=== PATIENT | male | born 1945 | race Caucasian/White ===

== ENCOUNTER 2016-12-23 08:33 | Inpatient (IN) | payer MEDICARE ==
[2016-12-23] VITALS (19 sets, daily range): BP systolic 121–168; BP diastolic 43–77; PULSE 57–75; RESP 15–22; Ht 160 cm; Wt 64.3 kg
[~2016-12-23] VITALS: Ht 160 cm; Wt 64.3 kg
[~2016-12-23 08:33] MED LIST: AMLO5TAB4 PO; ASPI-664 PO; ATOR20TA38 PO; DOCU100T PO; GLIM1TAB2 PO; GLUC-137 PO; LOSARTAN; METF500T4 PO; METO-429 PO; MULT1TAB59 PO; OMEP20CA16 PO; SEVOFLURANE 15 MIN ONE; TAMS0.4C2 PO; TRAV4OP25 BOTH EYES
[2016-12-23] MEDS ORDERED: VALS320T11 PO (09:19)
[2016-12-23] MEDS ORDERED: RANI150T5 PO (09:20)
[2016-12-23] MEDS ORDERED: GLIM1TAB2 PO (09:20)
[2016-12-23] MEDS ORDERED: METO100T13 PO (09:21)
[2016-12-23] MEDS ORDERED: ASPI81TA3 PO (09:21)
[2016-12-23] MEDS ORDERED: CYAN100 PO (09:22)
[2016-12-23] MEDS ORDERED: ASCO500C7 PO (09:26)
[2016-12-23] MEDS ORDERED: OSCAL PO (09:26)
[2016-12-23] MEDS ORDERED: OMEG1CAP22 PO (09:26)
[2016-12-23] MEDS ORDERED: GARL600T PO (09:29)
[2016-12-23] MEDS ORDERED: CEFAZOLIN 1 GM INJ ONE ×3 (11:47→15:58)
[2016-12-23] MEDS ORDERED: PROPOFOL 100 ML ONE (11:47)
[2016-12-23] MEDS ORDERED: MIDAZOLAM 1 MG/ML 2 ML INJ ONE (11:47)
[2016-12-23] MEDS ORDERED: SUCCINYLCHOLINE CHLORIDE 100 MG/5 ML SYG IV ONE (11:47)
[2016-12-23] MEDS ORDERED: FENTAnyl 50 MCG/ML VIAL ONE (11:47)
[2016-12-23] MEDS ORDERED: ROCURONIUM 50 MG INJ ONE (11:47)
[2016-12-23] MEDS ORDERED: BUPIVACAINE 0.25%/EPI (SDV) 10 ML INJ ONE (12:12)
[2016-12-23] MEDS ORDERED: CA CHLORIDE 10% 10 ML SYRINGE ONE ×2 (12:12→13:02)
[2016-12-23] MEDS ORDERED: SURGIFOAM POWDER 1 GM KIT ONE ×2 (12:12→13:39)
[2016-12-23] MEDS ORDERED: POLYMYXIN/BACITRACIN 1L IRRIG ONE (12:12)
[2016-12-23] MEDS ORDERED: THROMBIN 5000 UNIT VIAL ONE ×2 (12:12→13:40)
[2016-12-23] MEDS ORDERED: GELATIN SIZE 100 SPONGE ONE (12:12)
--- NOTE | 2016-12-23 12:19 | HPN ---
Date/Time of Note Date/Time of Note DATE: 12/23/16 TIME: 12:19 Interval H&P Admission Note Pt. seen H&P reviewed: No system changes MIRANDA CHINO PA-C Dec 23, 2016 12:19
[2016-12-23] MEDS ORDERED: PHENYLephrine (100 MCG/ML) 5ML SYG ONE (12:38)
[2016-12-23] MEDS ORDERED: HEPARIN 1000 UNITS/ML 10 ML INJ ONE ×2 (12:41→13:03)
[2016-12-23] MEDS ORDERED: ONDANSETRON 4 MG INJ ONE (15:09)
[2016-12-23] MEDS ORDERED: EPHEDrine SULFATE 50 MG/5 ML SYG ONE (15:09)
[2016-12-23] MEDS ORDERED: METOCLOPRAMIDE 10 MG INJ ONE (15:09)
[2016-12-23] MEDS ORDERED: DEXAMETHASONE 4 MG/ML 1 ML INJ ONE ×2 (15:09)
[2016-12-23] MEDS ORDERED: ACETAMINOPHEN 1000MG/100ML IV 100 ML ONE (15:10)
[2016-12-23] MEDS ORDERED: FENTAnyl 50 MCG/ML VIAL IV PRN ×3 (15:30)
[2016-12-23] MEDS ORDERED: morphine (1 MG/ML) 10ML SYRINGE IV PRN ×3 (15:30)
[2016-12-23] MEDS ORDERED: EPHEDrine SULFATE 50 MG/5 ML SYG IV PRN (15:30)
[2016-12-23] MEDS ORDERED: ONDANSETRON 4 MG INJ IV PRN ×2 (15:30→16:30)
[2016-12-23] MEDS ORDERED: ALBUMIN HUMAN 5% 250 ML IV PRN (15:30)
[2016-12-23] MEDS ORDERED: MEPERIDINE 25 MG INJ IV PRN (15:30)
[2016-12-23] MEDS ORDERED: METOCLOPRAMIDE 10 MG INJ IV PRN (15:30)
[2016-12-23] MEDS ORDERED: HYDROmorphONE (0.2 MG/ML) 10ML SYG IV PRN ×3 (15:30)
[2016-12-23] MEDS ORDERED: DIPHENHYDRAMINE 50 MG INJ IV PRN ×2 (15:30→16:30)
[2016-12-23] MEDS ORDERED: LABETALOL HCL 20MG INJ IV PRN (15:30)
[2016-12-23] MEDS ORDERED: NEOSTIGMINE 3 MG/3 ML SYRINGE ONE (16:10)
[2016-12-23] MEDS ORDERED: GLYCOPYRROLATE 0.4 MG INJ ONE (16:10)
[2016-12-23] MEDS ORDERED: BISACODYL 10 MG SUPP PR PRN (16:30)
[2016-12-23] MEDS: CEFAZOLIN 1 GM/50 ML (PMX) 50 ML IVPB SCH (16:30)
[2016-12-23] MEDS ORDERED: NALOXONE (0.4 MG/ML) INJ IV PRN (16:30)
[2016-12-23] MEDS ORDERED: CEPASTAT LOZENGE MT PRN (16:30)
[2016-12-23] MEDS ORDERED: HYDROmorphONE 0.2 MG/ML PCA IV SCH (16:30)
[2016-12-23] MEDS ORDERED: ZOLPIDEM 5 MG TAB PO PRN (16:30)
[2016-12-23] MEDS ORDERED: ACETAMINOPHEN 325 MG TAB PO PRN (16:30)
[2016-12-23] MEDS ORDERED: CYCLOBENZAPRINE 10 MG TAB PO PRN (16:30)
[2016-12-23] MEDS ORDERED: HYDROCODONE/APAP (10/325) TAB PO PRN (16:30)
[2016-12-23] MEDS ORDERED: HYDROmorphONE 1 MG/ML SYG IV PRN (16:30)
--- NOTE | 2016-12-23 16:31 | OPPN ---
Date/Time of Note Date/Time of Note DATE: 12/23/16 TIME: 16:28 Operative Report Preoperative Diagnosis L5-S1 isthmic spondylolisthesis, stenosis, radiculopathy Postoperative Diagnosis L5-S1 isthmic spondylolisthesis, stenosis, radiculopathy Operation/Procedure Performed TLIF L5-S1 Provider: WYATT NIÑO MD catering administrative assistant: MIRANDA CHINO PA-C Anesthesia Type: general Estimated blood loss: 150 - 200 ml's Transfusion Required: no Specimens L5-S1 disc Grafts/Implants infill oblique lateral TLIF implant 9x28mm Complications: no MIRANDA CHINO PA-C Dec 23, 2016 16:31 MIRANDA CHINO PA-C Dec 23, 2016 16:31
[2016-12-23] MEDS: 1/2 NS + KCL 20 MEQ 1,000 ML IV SCH (18:42)
[2016-12-23] MEDS ORDERED: GLUCAGON 1 MG INJ IM PRN (19:00)
[2016-12-23] MEDS ORDERED: DEXTROSE 50% 50 ML SYRINGE IV PRN ×2 (19:00)
[2016-12-23] MEDS ORDERED: GLUCOSE GEL 15 GRAM TUBE BUCCAL PRN (19:00)
[2016-12-23] MEDS ORDERED: GLUCOSE GEL 15 GRAM TUBE PO PRN ×2 (19:00)
[2016-12-23 19:19] LABS: ABNORMAL IP MESSAGE 1; BASOPHILS % 0.2 % (0.0-2.0); EOSINOPHILS % 0.1 % (0.0-7.0); HEMATOCRIT 30.5 % (42.0-52.0); HEMOGLOBIN 10.2 g/dl (14.0-18.0); LYMPHOCYTES # 0.4 10^3/ul (0.8-2.9); LYMPHOCYTES % 3.9 % (15.0-51.0); MEAN CORPUSCULAR HEMOGLOBIN 32.1 pg (29.0-33.0); MEAN CORPUSCULAR HGB CONC 33.4 g/dl (32.0-37.0); MEAN CORPUSCULAR VOLUME 95.9 fl (82.0-101.0); MEAN PLATELET VOLUME 9.2 fl (7.4-10.4); MONOCYTE # 0.3 10^3/ul (0.3-0.9); NEUTROPHIL # 9.9 10^3/ul (1.6-7.5); NEUTROPHILS % 92.2 % (39.0-77.0); PLATELET COUNT 254 10^3/UL (140-415); POSITIVE DIFF @See below; RED BLOOD COUNT 3.18 10^6/ul (4.70-6.10); RED CELL DISTRIBUTION WIDTH 12.6 % (11.5-14.5); WHITE BLOOD COUNT 10.7 10^3/ul (4.8-10.8)
[2016-12-23 19:31] LABS: CALCIUM 8.3 mg/dl (8.4-10.2); CREATININE 0.67 mg/dl (0.61-1.24); POTASSIUM 3.9 mmol/L (3.5-5.1)
[2016-12-23] MEDS: METOPROLOL (XL) 100 MG TAB PO SCH (20:26)
[2016-12-23] MEDS: RANITIDINE 150 MG TAB PO SCH (20:27)
[2016-12-23] MEDS: TAMSULOSIN (SR) 0.4 MG CAP PO SCH (20:27)
[2016-12-23] MEDS: ATORVASTATIN 20 MG TAB PO SCH (20:27)
[2016-12-23] MEDS: DOCUSATE SODIUM 100 MG CAP PO SCH (20:28)
[2016-12-23] MEDS: INSULIN ASPART [NOVOLOG] 3 ML PEN SC SCH (20:35)
--- NOTE | 2016-12-23 22:22 | RADRPT ---
PROCEDURE: Intraoperative fluoroscopy CLINICAL INDICATION: Lumbar fusion. TECHNIQUE: 6 fluoroscopic images of the lumbar spine were obtained by the operating surgeon. Mckenzie chang fluoroscopic time: 51.2 seconds. COMPARISON: None. FINDINGS: The images discectomy and posterior fusion at L5-S1. IMPRESSION: 1. Status post discectomy and posterior fusion at L5-S1. RPTAT: HTAR .Gordon Medeiros MD, Date Time Electronically viewed and signed by .Gordon Medeiros MD, on 12/23/2016 22:22 .R/
[2016-12-24] VITALS (28 sets, daily range): BP systolic 95–161; BP diastolic 38–84; PULSE 56–67; RESP 12–23
[2016-12-24] MEDS: CEFAZOLIN 1 GM/50 ML (PMX) 50 ML IVPB SCH ×2 (00:03→08:37)
[2016-12-24] MEDS: ACCU-CHEK XX SCH (01:23)
[2016-12-24] MEDS ORDERED: ACCU-CHEK XX SCH (02:00)
[2016-12-24] MEDS: 1/2 NS + KCL 20 MEQ 1,000 ML IV SCH ×3 (02:32→22:26)
--- NOTE | 2016-12-24 03:23 | CONS ---
DATE OF ADMISSION: 12/23/2016 DATE OF CONSULTATION: 12/23/2016 Thank you, Dr. Vilalgran, for asking me to participate in medical management of this patient. REASON FOR CONSULTATION: To manage the patient's atrial flutter, hypertension, hyperlipidemia, benign prostatic hypertrophy, and gastroesophageal reflux disease. HISTORY OF PRESENT ILLNESS: This 71-year-old man is now in the ICU after undergoing a lumbar spine surgery by Dr. Villagran. The patient was having low back pain radiating down his right leg. He had failed medical therapy and underwent a surgery today by Dr. Villagran, which included an L5, S1 decompression and instrumented fusion. The patient preoperatively was diagnosed with an L5-S1 spondylolisthesis and stenosis with radiculopathy. The patient is awake and alert. He denies any chest pain or shortness of breath. There is a note on the chart from Dr. Hellen Vale, who is the patient's delivery assistant. Dr. Vale saw the patient preoperatively and cleared him for this surgery. PAST MEDICAL HISTORY: The patient has a history of atherosclerotic heart disease, hypertension, typical atrial flutter, chronic diastolic congestive heart failure, hyperlipidemia, type 2 diabetes mellitus. MEDICATION: Include 1. Metoprolol succinate extended release 100 mg a day. 2. Valsartan 320 mg a day. 3. Omeprazole 20 mg a day. 4. Vitamin C 500 mg a day. 5. Tamsulosin 0.4 mg once a day. 6. Atorvastatin 20 mg a day. 7. Glimepiride 0.5 mg once a day. 8. Metformin 1000 mg twice a day. 9. Ranitidine 150 mg a day. 10. Tramadol 50 mg q.4 hours p.r.n. pain. PAST SURGICAL HISTORY: Prior angiograms x2 and coronary artery bypass surgery. FAMILY HISTORY: Both parents are . He has a grandson who had leukemia. Brother of an acute [place] at age 57. He has 3 children who have diabetes. SOCIAL HISTORY: He does not smoke, does not drink alcohol. ALLERGIES: HE HAS NO KNOWN DRUG ALLERGIES. PHYSICAL EXAMINATION: GENERAL: At this time, reveals a well-developed man in no apparent distress. VITALS: Temperature 97.6, pulse 61, respirations 15, blood pressure 161/59, O2 sat 97 percent on 2 L nasal cannula. HEENT: Head is normocephalic. Eyes, extraocular muscles are intact. Nose and mouth are normal. NECK: Supple. No neck vein distention. LUNGS: Clear to auscultation. HEART: Regular rhythm. No murmurs, gallops, or rubs. ABDOMEN: Soft and nontender. No masses or organomegaly. EXTREMITIES: No peripheral edema. IMPRESSION: The patient is now postop a lumbar sacral spine surgery. He had a decompressive laminectomy. The patient is awake and alert. Denies any chest pain or shortness of breath. I will manage the patient's hypertension, arrhythmia, coronary artery disease, gastroesophageal reflux disease, diabetes mellitus, and benign prostatic hypertrophy. PLAN: 1. Resume routine medications. 2. Check labs in the morning. 3. Postop lumbar spine surgery protocol. 4. I will follow the patient along with you. Dictated By: Clifford Lee MD /rox/renny /Document#: [id number]
[2016-12-24] MEDS ORDERED: PANTOPRAZOLE 40 MG INJ IV SCH (06:00)
--- NOTE | 2016-12-24 06:27 | OPR ---
DATE OF OPERATION: 12/23/2016 PREOPERATIVE DIAGNOSIS: L5-S1 isthmic spondylolisthesis with stenosis and radiculopathy. POSTOPERATIVE DIAGNOSIS: L5-S1 isthmic spondylolisthesis with stenosis and radiculopathy. PROCEDURES: 1. Bilateral pedicle screw placement at L5 and S1. 2. Transforaminal lumbar interbody fusion at L5 and S1. 3. Placement of intervertebral biomechanical device at L5 and S1. 4. L5-S1 decompression with decompression of L5 and S1 nerve roots bilaterally for stenosis. 5. Posterior lateral fusion at L5 and S1. 6. Iliac crest bone marrow aspiration. 7. Use of allograft. 8. Use of autograft. 9. Use of C-arm fluoroscopy with interpretation without radiologist present. 10. Use of operative microscope. 11. Intraoperative neuro monitoring (3 hours). IMPLANTS: 1. Neuro structure palladian pedicle screws 6.5 x 40 mm bilaterally at L5 and S1. 2. Walton TLIF 9 mm cage. PRIMARY SURGEON: Dr. Jeff Villagran. HELMET COVERER: Gillian Olea PA-C. NEED FOR DIESEL ENGINE TESTER: agency sales management assistant was required for retraction of neurovascular elements. FINDINGS: Neuro monitor of the case revealed left L5 amplitude at 50 percent, right L5 amplitude 20 percent, left S1 amplitude 40 percent, right side normal. At the case nerve signal returned to normal. Patient had spondylolisthesis which was unstable at the L5-S1 level with stenosis. ESTIMATED BLOOD LOSS: 200 cc. DRAINS: One. SPECIMENS: L5-S1 disc. COMPLICATIONS OF PROCEDURE: None. ANESTHESIOLOGIST: Dr. Emerson. ANESTHESIA: General. INDICATION FOR PROCEDURE: This is a 71-year-old gentleman with an unstable isthmic spondylolisthesis at L5 and S1. He has history of cardiac disease and diabetes and once he was medically cleared, I recommend the above procedure. Since he failed nonoperative measures. Preoperatively, discussed risks, benefits, alternatives, he understood, wished to proceed. OPERATIVE PROCEDURE: The patient was identified in the preoperative holding area, given Ancef antibiotics and taken to the operating room, where he was successfully placed under general anesthesia. Neuro monitors were placed. Sequential compressive devices were applied. Dhaliwal catheter was introduced. Arterial line was placed. Neuro monitoring was utilized during the procedure for 3 hours to include SSEP, MEP, and EMG. This was performed by [facility]. Start time was 1:15 p.m. and closure time was 3:15 p.m. The patient was placed in the operating room table in prone position on Ibrahima frame. All bony prominences were padded. The back was then prepped and draped in the usual sterile fashion. Using the C-arm fluoroscope identified the incision sites. I anesthetized the skin with Marcaine and epinephrine. Incision was then made over the L5-S1 level. Incision was taken down to the dorsal fascia, which was incised with Bovie cautery. I then subperiosteally dissected the L5-S1 lamina out to the transverse process and sacral ala bilaterally. Next, I placed pedicle screws bilaterally at L5-S1. I used C-arm fluoroscope to confirm placement. I stimulated the screws and there was no evidence of cortical breach. Next I performed an iliac crest bone marrow aspiration from the right side. The blood was spun down using the [employer] device. I then brought the microscope in and performed a central decompressive laminectomy at the L5-S1 level decompressing the L5-S1 nerve roots bilaterally. This was done in order to alleviate the stenosis beyond what was required in order to perform interbody fusion. Once the decompression was done, I turned my attention to the right side. My assistant kitchen manager retracted the neuro elements medially. I made an annulotomy followed by radicle discectomy. I prepared the endplates. I then placed various trials and chose the appropriate graft height. I then placed the autograft from the lamina into the disc space. I then took the PEEK cage within which I placed allograft and I impacted the intervertebral biomechanical device into the L5-S1 level to complete the transforaminal lumbar interbody fusion at this level. I then irrigated the wound. Valsalva was performed. There was no leak of CSF. Hemostasis achieved with bipolar cautery and Surgifoam. The Ibrahima frame was then let down. I then placed the appropriate 35 mm rods bilaterally with set screws which I tightened per forming mill operator's specifications. I made sure that the daniel was of the appropriate length. I next prepared the posterior lateral gutters where I put autograft for posterior lateral fusion at L5-S1. At this point, microscope was taken off the field. All nerve signals returned to normal. I took the PPP injected the dura for hemostatic purposes. I then placed a subfascial drain. I closed the deep fascia with number 1 Vicryl stitch. I took final AP and lateral images and I was happy with the placement of the hardware in the lamina of the spine. I then closed the deep fascia with number 1 Strata Fix suture. I closed the subcutaneous tissue with 2-0 Vicryl stitch and 4-0 Monocryl closure was then performed. Dermabond and sterile dressing was then applied. The patient was then awakened from anesthesia and taken to recovery room in stable condition. Lap, sponge, instrument counts correct times 2. There were no apparent complications during the procedure. The patient will be admitted to the ICU given his cardiac history. He will have postop antibiotics, physical therapy and pain control, as well as neurovascular checks. Dictated By: Jeff Villagran MD /rox/arelis /Document#: [id number] RADHA
[2016-12-24 06:33] LABS: WHITE BLOOD COUNT 9.5 10^3/ul (4.8-10.8)
[2016-12-24 06:34] LABS: ABNORMAL IP MESSAGE 1; BASOPHILS % 0.1 % (0.0-2.0); HEMOGLOBIN 9.7 g/dl (14.0-18.0); LYMPHOCYTES # 0.6 10^3/ul (0.8-2.9); LYMPHOCYTES % 5.8 % (15.0-51.0); MEAN CORPUSCULAR HEMOGLOBIN 33.2 pg (29.0-33.0); MEAN CORPUSCULAR HGB CONC 34.6 g/dl (32.0-37.0); MEAN CORPUSCULAR VOLUME 95.9 fl (82.0-101.0); MEAN PLATELET VOLUME 9.8 fl (7.4-10.4); MONOCYTE # 0.7 10^3/ul (0.3-0.9); MONOCYTES % 7.7 % (0.0-11.0); NEUTROPHIL # 8.2 10^3/ul (1.6-7.5); NEUTROPHILS % 86.1 % (39.0-77.0); PLATELET COUNT 271 10^3/UL (140-415); POSITIVE DIFF @See below; RED BLOOD COUNT 2.92 10^6/ul (4.70-6.10); RED CELL DISTRIBUTION WIDTH 12.6 % (11.5-14.5)
--- NOTE | 2016-12-24 07:01 | PN ---
Date/Time of Note Date/Time of Note DATE: 12/24/16 TIME: 07:00 Assessment/Plan Lines/Catheters IV Catheter Type (from Nrsg): Peripheral IV Dhaliwal in Place (from Nrsg): Yes Assessment/Plan Assessment/Plan pod #1 s/p lumbar fusion doing well. PT, pain control abnormal EKG with 1st degree block. will defer to med consult Subjective 24 Hr Interval Summary mild back pain. no chest pain Exam/Review of Systems Vital Signs Vitals Vital Signs Date Time Temp Pulse Resp B/P Pulse Ox O2 Delivery O2 Flow Rate FiO2 12/24/16 06:42 18 12/24/16 06:00 59 129/58 96 Nasal Cannula 2.0 12/24/16 04:00 97.8 Intake and Output 12/23/16 12/23/16 12/24/16 15:00 23:00 07:00 Intake Total 2750 ml 1240 ml Output Total 1870 ml 300 ml Balance 880 ml 940 ml Exam Free Text/Dictation NVI. alert and oriented Results Result Diagram: 12/24/16 0515 12/23/16 1900 WYATT NIÑO MD Dec 24, 2016 07:01
[2016-12-24] MEDS ORDERED: NON-FORMULARY/PATIENT OWN MED (Omeprazole* 20 MG) PO SCH (07:05)
[2016-12-24 07:11] LABS: CALCIUM 8.2 mg/dl (8.4-10.2); CREATININE 0.71 mg/dl (0.61-1.24); MAGNESIUM 1.5 mg/dl (1.7-2.5); POTASSIUM 4.4 mmol/L (3.5-5.1)
--- NOTE | 2016-12-24 08:14 | CONS ---
Date/Time of Note Date/Time of Note DATE: 12/24/16 TIME: 08:10 Assessment/Plan Assessment/Plan Chief Complaint/Hosp Course 1. He is 1 day postop a lumbar sacral spine surgery. He is doing well. He is currently in the ICU being monitored. 2. History of atrial flutter. The patient is now in sinus rhythm. Patient will be seen by a fur vault attendant today. If okay with fur vault attendant patient can transfer to the orthopedic floor. 3. Hypertension controlled 4. Type 2 diabetes mellitus. Will restart diabetic medication. 5. Hypomagnesemia. We will replace magnesium. 6. Coronary artery disease the patient is not having any chest pain or shortness of breath Problems: Consultation Date/Type/Reason Admit Date/Time Dec 23, 2016 at 08:33 Initial Consult Date 24 HR Interval Summary Free Text/Dictation The patient is being seen in the intensive care unit. He is 1 day postop a lumbar sacral spine surgery. He is awake and alert. He has no complaints. Constitutional: no complaints Exam/Review of Systems Vital Signs Vitals Vital Signs Date Time Temp Pulse Resp B/P Pulse Ox O2 Delivery O2 Flow Rate FiO2 12/24/16 06:42 18 12/24/16 06:00 59 129/58 96 Nasal Cannula 2.0 12/24/16 04:00 97.8 Intake and Output 12/23/16 12/23/16 12/24/16 15:00 23:00 07:00 Intake Total 2750 ml 1240 ml Output Total 1870 ml 300 ml Balance 880 ml 940 ml Exam Constitutional: alert, oriented, well developed Respiratory: clear to auscultation, normal air movement Cardiovascular: regular rate and rhythm Gastrointestinal: soft Musculoskeletal: nl extremities to inspection Results Result Diagram: 12/24/16 0515 12/24/16 0515 Results 24 hrs Laboratory Tests Test 12/23/16 09:26 12/23/16 18:56 12/23/16 19:00 12/23/16 20:33 Bedside Glucose 140 167 176 White Blood Count 10.7 Red Blood Count 3.18 L Hemoglobin 10.2 L Hematocrit 30.5 L Mean Corpuscular Volume 95.9 Mean Corpuscular Hemoglobin 32.1 Mean Corpuscular Hemoglobin Concent 33.4 Red Cell Distribution Width 12.6 Platelet Count 254 Mean Platelet Volume 9.2 Neutrophils % 92.2 H Lymphocytes % 3.9 L Monocytes % 3.0 Eosinophils % 0.1 Basophils % 0.2 Nucleated Red Blood Cells % 0.0 Neutrophils # 9.9 H Lymphocytes # 0.4 L Monocytes # 0.3 Eosinophils # 0.0 Basophils # 0.0 Nucleated Red Blood Cells # 0.0 Sodium Level 134 L Potassium Level 3.9 Chloride Level 98 Carbon Dioxide Level 25 Anion Gap 15 Blood Urea Nitrogen 13 Creatinine 0.67 Glucose Level 174 Calcium Level 8.3 L Troponin I < 0.012 Test 12/24/16 05:15 White Blood Count 9.5 Red Blood Count 2.92 L Hemoglobin 9.7 L Hematocrit 28.0 L Mean Corpuscular Volume 95.9 Mean Corpuscular Hemoglobin 33.2 H Mean Corpuscular Hemoglobin Concent 34.6 Red Cell Distribution Width 12.6 Platelet Count 271 Mean Platelet Volume 9.8 Neutrophils % 86.1 H Lymphocytes % 5.8 L Monocytes % 7.7 Eosinophils % 0.0 Basophils % 0.1 Nucleated Red Blood Cells % 0.0 Neutrophils # 8.2 H Lymphocytes # 0.6 L Monocytes # 0.7 Eosinophils # 0.0 Basophils # 0.0 Nucleated Red Blood Cells # 0.0 Sodium Level 135 Potassium Level 4.4 Chloride Level 97 Carbon Dioxide Level 25 Anion Gap 17 H Blood Urea Nitrogen 12 Creatinine 0.71 Glucose Level 245 H Calcium Level 8.2 L Magnesium Level 1.5 L Medications Medications Current Medications Potassium Chloride/Sodium Chloride (1/2 NS + KCl 20 Meq) 1,000 ml @ 100 mls/hr Q10H IV Last administered on 12/24/16t 02:32; Admin Dose 100 MLS/HR; Start at 16:26 Acetaminophen/ Hydrocodone Bitart ([place] (10/325)) 1 tab Q4H PRN PO PAIN LEVEL 1-5; Start 12/23/16 at 16:30 Acetaminophen/ Hydrocodone Bitart ([place] (10/325)) 2 tab Q4H PRN PO PAIN LEVEL 6-10; Start 12/23/16 at 16:30 Hydromorphone HCl 0.2 mg 0.2 mg Q1H PRN IV BREAKTHROUGH PAIN; Start 12/23/16 at 16:30 Cefazolin Sodium (Ancef 1 Gm/50 ml (Pmx)) 50 ml @ 100 mls/hr Q8H IVPB Last administered on 12/24/16 00:03; Admin Dose 100 MLS/HR; Start 12/23/16 at 16:30; Stop 12/24/16 at 08:59 Ondansetron HCl (Zofran Inj) 4 mg Q6H PRN IV NAUSEA AND/OR VOMITING; Start 12/23 at 16:30 Bisacodyl (Dulcolax Supp) 10 mg DAILY PRN [place] CONSTIPATION; Start 12/23/16 at 16: 30 Docusate Sodium (Colace) 100 mg BID PO Last administered on 12/23/16 20:28; Admin Dose 100 MG; Start 12/23/16 at 21:00 Pantoprazole (Protonix Iv) 40 mg DAILY@06 IV Last administered on 12/24/16 05: 41; Admin Dose 40 MG; Start 12/24/16 at 06:00 Al Hydrox/Mg Hydrox/Simethicone (Mag-Al Plus) 15 ml Q6H PRN PO CONSTIPATION/ DYSPEPSIA; Start 12/23/16 at 16:30 Acetaminophen (Tylenol Tab) 650 mg Q4H PRN PO COLLAZO OR TEMP GREATER THAN 101.3F; Start 12/23/16 at 16:30 Cyclobenzaprine HCl (Flexeril) 10 mg TID PRN PO MUSCLE SPASMS; Start 12/23/16 at 16:30 Phenol (Cepastat Lozenge) 1 lozenge PRN PRN MT SORE THROAT; Start 12/23/16 at 16 :30 Diphenhydramine HCl (Benadryl) 25 mg Q6H PRN IV ITCHING; Start 12/23/16 at 16:30 Naloxone HCl (Narcan) 0.2 mg Q2M PRN IV RR 8 BREATHS/MIN OR LESS; Start at 16:30 Hydromorphone HCl (Dilaudid STRIPPER SHOVEL OPERATOR) STRIPPER SHOVEL OPERATOR to be started in PACU Q4PCA IV Last administered on 12/23/16 17:05; Admin Dose 6 MG; Start 12/23/16 at 16:30 Miscellaneous Information 1. Hold STRIPPER SHOVEL OPERATOR at 1,000... STRIPPER SHOVEL OPERATOR IV ; Start 12/23/16 at 16: 30 Ascorbic Acid (Vitamin C) 500 mg DAILY PO ; Start 12/24/16 at 09:00 Atorvastatin Calcium (Lipitor) 20 mg QHS PO Last administered on 12/23/16 20:27 ; Admin Dose 20 MG; Start 12/23/16 at 21:00 Metoprolol Succinate (Toprol Xl) 100 mg DAILY PO Last administered on 12/23/16 20:26; Admin Dose 100 MG; Start 12/23/16 at 19:00 Ranitidine HCl (Zantac) 150 mg HS PO Last administered on 12/23/16 20:27; Admin Dose 150 MG; Start 12/23/16 at 21:00 Tamsulosin HCl (Flomax) 0.4 mg QHS PO Last administered on 12/23/16 20:27; Admin Dose 0.4 MG; Start 12/23/16 at 21:00 Valsartan (Diovan) 320 mg DAILY PO ; Start 12/24/16 at 09:00 Diagnostic Test (Pha) (Accu-Chek) 1 ea 02 XX ; Start 12/24/16 at 02:00 Miscellaneous Information 1 ea NOTE XX ; Start 12/23/16 at 19:00 Glucose (Glutose) 15 gm Q15M PRN PO DECREASED GLUCOSE; Start 12/23/16 at 19:00 Glucose (Glutose) 22.5 gm Q15M PRN PO DECREASED GLUCOSE; Start 12/23/16 at 19:00 Dextrose (D50w Syringe) 25 ml Q15M PRN IV DECREASED GLUCOSE; Start 12/23/16 at 19:00 Dextrose (D50w Syringe) 50 ml Q15M PRN IV DECREASED GLUCOSE; Start 12/23/16 at 19:00 Glucagon (Glucagen) 1 mg Q15M PRN IM DECREASED GLUCOSE; Start 12/23/16 at 19:00 Glucose (Glutose) 15 gm Q15M PRN BUCCAL DECREASED GLUCOSE; Start 12/23/16 at 19: 00 TRISHA MATAMOROS MD Dec 24, 2016 08:14
[2016-12-24] MEDS ORDERED: MAGNESIUM SULFATE 2 GM/50 ML 50 ML IVPB ONE (08:30)
[2016-12-24] MEDS: DOCUSATE SODIUM 100 MG CAP PO SCH ×2 (08:38→20:33)
[2016-12-24] MEDS: METOPROLOL (XL) 100 MG TAB PO SCH (08:38)
[2016-12-24] MEDS: ASCORBIC ACID 500 MG TAB PO SCH (08:38)
[2016-12-24] MEDS: VALSARTAN 160 MG TAB PO SCH (08:39)
[2016-12-24] MEDS: INSULIN ASPART [NOVOLOG] 3 ML PEN SC SCH ×4 (08:40→20:38)
--- NOTE | 2016-12-24 09:48 | OPPN ---
Date/Time of Note Date/Time of Note DATE: 12/24/16 TIME: 09:47 Post-Anesthesia Notes Post-Anesthesia Note Last documented vital signs Vital Signs Date Time Temp Pulse Resp B/P Pulse Ox O2 Delivery O2 Flow Rate FiO2 12/24/16 06:42 18 12/24/16 06:00 59 129/58 96 Nasal Cannula 2.0 12/24/16 04:00 97.8 Activity: WNL Respiratory function: WNL Cardiovascular function: WNL Mental status: Baseline Pain reasonably controlled: Yes Hydration appropriate: Yes Nausea/Vomiting absent: Yes Comments Troponin was checked not elevated, patient is stable. EVELYN COOK MD Dec 24, 2016 09:48
--- NOTE | 2016-12-24 16:40 | CONS ---
Date/Time of Note Date/Time of Note DATE: 12/24/16 TIME: 16:39 Assessment/Plan Assessment/Plan Additional Assessment/Plan Postoperative paroxysmal atrial flutter, currently sinus rhythm Status post spine surgery CAD with history of CABG Hypertension -In discussion with nursing staff, patient with postoperative atrial flutter. On review of telemetry in the ICU, patient remains in sinus rhythm as well as on ECG this morning. We will continue beta-blockers heart rate and blood pressure permits. Restart anticoagulation when okay by our surgery colleagues. Maintain potassium above 4.0 and magnesium above 2.0 to decrease propensity for arrhythmias. Okay to transfer out of the ICU from a cardiovascular standpoint. Consultation Date/Type/Reason Admit Date/Time Dec 23, 2016 at 08:33 Type of Consultation: cv Reason for Consultation Arrhythmia Hx of Present Illness This is a 71-year-old male with past medical history of CAD status post CABG, paroxysmal atrial fibrillation, hypertension who presented for elective spine surgery. As per nursing staff, patient with postoperative atrial flutter. On telemetry in the ICU, patient remains in sinus rhythm. Patient denies any palpitations, dizziness, chest pain, shortness of breath. He does have a known history of paroxysmal atrial flutter. 12 point review of system was performed with all pertinent positives and negatives mentioned above and all else is negative Constitutional: no complaints Past Medical History Atrial flutter Medical History: coronary artery disease, hypertension Past Surgical History Past Surgical Hx: coronary bypass surgery Family History Significant Family History: no pertinent family hx Social History Smoking Status: Former smoker Exam/Review of Systems Vital Signs Vitals Vital Signs Date Time Temp Pulse Resp B/P Pulse Ox O2 Delivery O2 Flow Rate FiO2 12/24/16 13:30 61 12 96 12/24/16 13:00 126/84 12/24/16 12:00 98.2 12/24/16 06:00 Nasal Cannula 2.0 Intake and Output 12/23/16 12/23/16 12/24/16 15:00 23:00 07:00 Intake Total 2750 ml 1340 ml Output Total 1870 ml 575 ml Balance 880 ml 765 ml Exam No apparent distress, family at bedside Constitutional: alert, oriented Head: normocephalic Respiratory: other (Coarse breath sounds bilaterally, no wheezing) Cardiovascular: other (S1-S2 heard), regular rate and rhythm Gastrointestinal: bowel sounds, non-tender, other (No guarding), soft Extremities: other (No edema) Results Result Diagram: 12/24/16 0515 12/24/16 0515 Results 24 hrs Laboratory Tests Test 12/23/16 18:56 12/23/16 19:00 12/23/16 20:33 12/24/16 05:15 Bedside Glucose 167 176 White Blood Count 10.7 9.5 Red Blood Count 3.18 L 2.92 L Hemoglobin 10.2 L 9.7 L Hematocrit 30.5 L 28.0 L Mean Corpuscular Volume 95.9 95.9 Mean Corpuscular Hemoglobin 32.1 33.2 H Mean Corpuscular Hemoglobin Concent 33.4 34.6 Red Cell Distribution Width 12.6 12.6 Platelet Count 254 271 Mean Platelet Volume 9.2 9.8 Neutrophils % 92.2 H 86.1 H Lymphocytes % 3.9 L 5.8 L Monocytes % 3.0 7.7 Eosinophils % 0.1 0.0 Basophils % 0.2 0.1 Nucleated Red Blood Cells % 0.0 0.0 Neutrophils # 9.9 H 8.2 H Lymphocytes # 0.4 L 0.6 L Monocytes # 0.3 0.7 Eosinophils # 0.0 0.0 Basophils # 0.0 0.0 Nucleated Red Blood Cells # 0.0 0.0 Sodium Level 134 L 135 Potassium Level 3.9 4.4 Chloride Level 98 97 Carbon Dioxide Level 25 25 Anion Gap 15 17 H Blood Urea Nitrogen 13 12 Creatinine 0.67 0.71 Glucose Level 174 245 H Calcium Level 8.3 L 8.2 L Troponin I < 0.012 Magnesium Level 1.5 L Test 12/24/16 08:15 12/24/16 12:10 Bedside Glucose 216 154 Medications Medications Current Medications Potassium Chloride/Sodium Chloride (1/2 NS + KCl 20 Meq) 1,000 ml @ 100 mls/hr Q10H IV Last administered on 12/24/16t 15:18; Admin Dose 100 MLS/HR; Start at 16:26 Acetaminophen/ Hydrocodone Bitart ([place] (10/325)) 1 tab Q4H PRN PO PAIN LEVEL 1-5; Start 12/23/16 at 16:30 Acetaminophen/ Hydrocodone Bitart ([place] (10/325)) 2 tab Q4H PRN PO PAIN LEVEL 6-10; Start 12/23/16 at 16:30 Hydromorphone HCl (Dilaudid) 0.2 mg Q1H PRN IV BREAKTHROUGH PAIN; Start at 16:30 Ondansetron HCl (Zofran Inj) 4 mg Q6H PRN IV NAUSEA AND/OR VOMITING; Start 12/23 at 16:30 Bisacodyl (Dulcolax Supp) 10 mg DAILY PRN [place] CONSTIPATION; Start 12/23/16 at 16: 30 Docusate Sodium (Colace) 100 mg BID PO Last administered on 12/24/16 08:38; Admin Dose 100 MG; Start 12/23/16 at 21:00 Al Hydrox/Mg Hydrox/Simethicone (Mag-Al Plus) 15 ml Q6H PRN PO CONSTIPATION/ DYSPEPSIA; Start 12/23/16 at 16:30 Acetaminophen (Tylenol Tab) 650 mg Q4H PRN PO COLLAZO OR TEMP GREATER THAN 101.3F; Start 12/23/16 at 16:30 Cyclobenzaprine HCl (Flexeril) 10 mg TID PRN PO MUSCLE SPASMS; Start 12/23/16 at 16:30 Phenol (Cepastat Lozenge) 1 lozenge PRN PRN [place] SORE THROAT; Start 12/23/16 at 16 :30 Diphenhydramine HCl (Benadryl) 25 mg Q6H PRN IV ITCHING; Start 12/23/16 at 16:30 Naloxone HCl (Narcan) 0.2 mg Q2M PRN IV RR 8 BREATHS/MIN OR LESS; Start at 16:30 Hydromorphone HCl (Dilaudid CURB ATTENDANT) CURB ATTENDANT to be started in PACU Q4PCA IV Last administered on 12/23/16 17:05; Admin Dose 6 MG; Start 12/23/16 at 16:30 Miscellaneous Information 1. Hold CURB ATTENDANT at 1,000... CURB ATTENDANT IV ; Start 12/23/16 at 16: 30 Ascorbic Acid (Vitamin C) 500 mg DAILY PO Last administered on 12/24/16 08:38; Admin Dose 500 MG; Start 12/24/16 at 09:00 Atorvastatin Calcium (Lipitor) 20 mg QHS PO Last administered on 12/23/16 20:27 ; Admin Dose 20 MG; Start 12/23/16 at 21:00 Metoprolol Succinate (Toprol Xl) 100 mg DAILY PO Last administered on 12/24/16 08:38; Admin Dose 100 MG; Start 12/23/16 at 19:00 Ranitidine HCl (Zantac) 150 mg HS PO Last administered on 12/23/16 20:27; Admin Dose 150 MG; Start 12/23/16 at 21:00 Tamsulosin HCl (Flomax) 0.4 mg QHS PO Last administered on 12/23/16 20:27; Admin Dose 0.4 MG; Start 12/23/16 at 21:00 Valsartan (Diovan) 320 mg DAILY PO Last administered on 12/24/16 08:39; Admin Dose 320 MG; Start 12/24/16 at 09:00 Diagnostic Test (Pha) (Accu-Chek) 1 ea 02 XX ; Start 12/24/16 at 02:00 Miscellaneous Information 1 ea NOTE XX ; Start 12/23/16 at 19:00 Glucose (Glutose) 15 gm Q15M PRN PO DECREASED GLUCOSE; Start 12/23/16 at 19:00 Glucose (Glutose) 22.5 gm Q15M PRN PO DECREASED GLUCOSE; Start 12/23/16 at 19:00 Dextrose (D50w Syringe) 25 ml Q15M PRN IV DECREASED GLUCOSE; Start 12/23/16 at 19:00 Dextrose (D50w Syringe) 50 ml Q15M PRN IV DECREASED GLUCOSE; Start 12/23/16 at 19:00 Glucagon (Glucagen) 1 mg Q15M PRN IM DECREASED GLUCOSE; Start 12/23/16 at 19:00 Glucose (Glutose) 15 gm Q15M PRN BUCCAL DECREASED GLUCOSE; Start 12/23/16 at 19: 00 Pantoprazole (Protonix Tab) 40 mg DAILY@06 PO ; Start 12/25/16 at 06:00 Procedures Procedures ECG demonstrates sinus rhythm with first-degree AV block, nonspecific ST abnormalities Gian Lizarraga DO Dec 24, 2016 16:40
[2016-12-24] MEDS ORDERED: metFORMIN 500 MG TAB PO SCH (17:35)
--- NOTE | 2016-12-24 17:38 | RADRPT ---
Vent Rate: 59 bpm RR Interval: 0 msec TX Interval: 222 msec QRS Duration: 140 msec QT Interval: 436 msec QTC Interval: 431 msec P-R-T [place]: 57 - 10 - 46 degrees Sinus bradycardia with 1st degree AV block Right bundle branch block Abnormal ECG Electronically Signed By: Gian Lizarraga [id number]
[2016-12-24] MEDS: TAMSULOSIN (SR) 0.4 MG CAP PO SCH (20:33)
[2016-12-24] MEDS: RANITIDINE 150 MG TAB PO SCH (20:33)
[2016-12-24] MEDS: ATORVASTATIN 20 MG TAB PO SCH (20:33)
[2016-12-25] MEDS: 1/2 NS + KCL 20 MEQ 1,000 ML IV SCH ×3 (01:42→15:05)
[2016-12-25] MEDS: ACCU-CHEK XX SCH (02:07)
[2016-12-25 02:47] VITALS: BP 118/64; RESP 18
[2016-12-25] MEDS: PANTOPRAZOLE (EC) 40 MG TAB PO SCH (05:09)
[2016-12-25 05:14] LABS: BASOPHILS % 0.4 % (0.0-2.0); EOSINOPHILS # 0.1 10^3/ul (0.0-0.5); EOSINOPHILS % 0.6 % (0.0-7.0); HEMATOCRIT 27.7 % (42.0-52.0); HEMOGLOBIN 9.5 g/dl (14.0-18.0); LYMPHOCYTES % 9.3 % (15.0-51.0); MEAN CORPUSCULAR HEMOGLOBIN 33.3 pg (29.0-33.0); MEAN CORPUSCULAR HGB CONC 34.3 g/dl (32.0-37.0); MEAN CORPUSCULAR VOLUME 97.2 fl (82.0-101.0); MEAN PLATELET VOLUME 9.7 fl (7.4-10.4); MONOCYTE # 1.3 10^3/ul (0.3-0.9); MONOCYTES % 12.4 % (0.0-11.0); NEUTROPHIL # 8.1 10^3/ul (1.6-7.5); NEUTROPHILS % 76.9 % (39.0-77.0); PLATELET COUNT 236 10^3/UL (140-415); RED BLOOD COUNT 2.85 10^6/ul (4.70-6.10); RED CELL DISTRIBUTION WIDTH 13.1 % (11.5-14.5); WHITE BLOOD COUNT 10.5 10^3/ul (4.8-10.8)
[2016-12-25 05:43] LABS: CALCIUM 8.2 mg/dl (8.4-10.2); CREATININE 0.73 mg/dl (0.61-1.24); MAGNESIUM 1.6 mg/dl (1.7-2.5); POTASSIUM 4.6 mmol/L (3.5-5.1)
[2016-12-25 08:18] VITALS: BP 131/63; RESP 20
--- NOTE | 2016-12-25 08:38 | CONS ---
Date/Time of Note Date/Time of Note DATE: 12/25/16 TIME: 08:34 Assessment/Plan Assessment/Plan Chief Complaint/Hosp Course 1. He is 2 days postop a lumbar sacral spine surgery. He is doing well. He was transferred to the ortho floor yesterday . Will have PT as tolerated . 2. History of atrial flutter. The patient is now in sinus rhythm. Patient will be seen by a cooling pan tender today. 3. Hypertension controlled 4. Type 2 diabetes mellitus. Will restart diabetic medication. 5. Hypomagnesemia. We will replace magnesium. 6. Coronary artery disease the patient is not having any chest pain or shortness of breath Problems: Consultation Date/Type/Reason Admit Date/Time Dec 23, 2016 at 08:33 Type of Consultation: cv 24 HR Interval Summary Free Text/Dictation He is having back pain . He denies CP or SOB . Constitutional: no complaints Exam/Review of Systems Vital Signs Vitals Vital Signs Date Time Temp Pulse Resp B/P Pulse Ox O2 Delivery O2 Flow Rate FiO2 12/25/16 08:18 98.4 60 20 131/63 93 12/24/16 17:30 Room Air 12/24/16 06:00 2.0 Intake and Output 12/24/16 12/24/16 12/25/16 15:00 23:00 07:00 Intake Total 1900 ml 450 ml 1800 ml Output Total 735 ml 285 ml 1860 ml Balance 1165 ml 165 ml -60 ml Exam Constitutional: alert, frail, oriented ENMT: nl external ears & nose, nl lips & teeth, nl nasal mucosa & septum Respiratory: clear to auscultation Cardiovascular: regular rate and rhythm Gastrointestinal: non-tender, soft Musculoskeletal: nl extremities to inspection Results Result Diagram: 12/25/16 0429 12/25/16 0429 Results 24 hrs Laboratory Tests Test 12/24/16 12:10 12/24/16 17:35 12/24/16 20:31 12/25/16 01:26 Bedside Glucose 154 167 215 208 Test 12/25/16 04:29 White Blood Count 10.5 Red Blood Count 2.85 L Hemoglobin 9.5 L Hematocrit 27.7 L Mean Corpuscular Volume 97.2 Mean Corpuscular Hemoglobin 33.3 H Mean Corpuscular Hemoglobin Concent 34.3 Red Cell Distribution Width 13.1 Platelet Count 236 Mean Platelet Volume 9.7 Neutrophils % 76.9 Lymphocytes % 9.3 L Monocytes % 12.4 H Eosinophils % 0.6 Basophils % 0.4 Nucleated Red Blood Cells % 0.0 Neutrophils # 8.1 H Lymphocytes # 1.0 Monocytes # 1.3 H Eosinophils # 0.1 Basophils # 0.0 Nucleated Red Blood Cells # 0.0 Sodium Level 132 L Potassium Level 4.6 Chloride Level 94 L Carbon Dioxide Level 27 Anion Gap 16 Blood Urea Nitrogen 12 Creatinine 0.73 Glucose Level 192 Calcium Level 8.2 L Magnesium Level 1.6 L Medications Medications Current Medications Potassium Chloride/Sodium Chloride (05/20 NS + KCl 20 Meq) 1,000 ml @ 100 mls/hr Q10H IV Last administered on 12/25/16 01:42; Admin Dose 100 MLS/HR; Start at 16:26 Acetaminophen/ Hydrocodone Bitart ([place] (10/325)) 1 tab Q4H PRN PO PAIN LEVEL 1-5; Start 12/23/16 at 16:30 Acetaminophen/ Hydrocodone Bitart ([place] (10/325)) 2 tab Q4H PRN PO PAIN LEVEL 6-10; Start 12/23/16 at 16:30 Hydromorphone HCl (Dilaudid) 0.2 mg Q1H PRN IV BREAKTHROUGH PAIN; Start at 16:30 Ondansetron HCl (Zofran Inj) 4 mg Q6H PRN IV NAUSEA AND/OR VOMITING; Start 12/23 at 16:30 Bisacodyl (Dulcolax Supp) 10 mg DAILY PRN [place] CONSTIPATION; Start 12/23/16 at 16: 30 Docusate Sodium (Colace) 100 mg BID PO Last administered on 12/24/16 20:33; Admin Dose 100 MG; Start 12/23/16 at 21:00 Al Hydrox/Mg Hydrox/Simethicone (Mag-Al Plus) 15 ml Q6H PRN PO CONSTIPATION/ DYSPEPSIA; Start 12/23/16 at 16:30 Acetaminophen (Tylenol Tab) 650 mg Q4H PRN PO COLLAZO OR TEMP GREATER THAN 101.3F; Start 12/23/16 at 16:30 Cyclobenzaprine HCl (Flexeril) 10 mg TID PRN PO MUSCLE SPASMS; Start 12/23/16 at 16:30 Phenol (Cepastat Lozenge) 1 lozenge PRN PRN MT SORE THROAT; Start 12/23/16 at 16 :30 Diphenhydramine HCl (Benadryl) 25 mg Q6H PRN IV ITCHING; Start 12/23/16 at 16:30 Naloxone HCl (Narcan) 0.2 mg Q2M PRN IV RR 8 BREATHS/MIN OR LESS; Start at 16:30 Hydromorphone HCl (Dilaudid CONDEMNATION ENGINEER) CONDEMNATION ENGINEER to be started in PACU Q4PCA IV Last administered on 12/23/16 17:05; Admin Dose 6 MG; Start 12/23/16 at 16:30 Miscellaneous Information 1. Hold CONDEMNATION ENGINEER at 1,000... CONDEMNATION ENGINEER IV ; Start 12/23/16 at 16: 30 Ascorbic Acid (Vitamin C) 500 mg DAILY PO Last administered on 12/24/16 08:38; Admin Dose 500 MG; Start 12/24/16 at 09:00 Atorvastatin Calcium (Lipitor) 20 mg QHS PO Last administered on 12/24/16 20:33 ; Admin Dose 20 MG; Start 12/23/16 at 21:00 Metoprolol Succinate (Toprol Xl) 100 mg DAILY PO Last administered on 12/24/16 08:38; Admin Dose 100 MG; Start 12/23/16 at 19:00 Ranitidine HCl (Zantac) 150 mg HS PO Last administered on 12/24/16 20:33; Admin Dose 150 MG; Start 12/23/16 at 21:00 Tamsulosin HCl (Flomax) 0.4 mg QHS PO Last administered on 12/24/16 20:33; Admin Dose 0.4 MG; Start 12/23/16 at 21:00 Valsartan (Diovan) 320 mg DAILY PO Last administered on 12/24/16 08:39; Admin Dose 320 MG; Start 12/24/16 at 09:00 Diagnostic Test (Pha) (Accu-Chek) 1 ea 02 XX Last administered on 12/25/16 02: 07; Admin Dose 1 EA; Start 12/24/16 at 02:00 Miscellaneous Information 1 ea NOTE XX ; Start 12/23/16 at 19:00 Glucose (Glutose) 15 gm Q15M PRN PO DECREASED GLUCOSE; Start 12/23/16 at 19:00 Glucose (Glutose) 22.5 gm Q15M PRN PO DECREASED GLUCOSE; Start 12/23/16 at 19:00 Dextrose (D50w Syringe) 25 ml Q15M PRN IV DECREASED GLUCOSE; Start 12/23/16 at 19:00 Dextrose (D50w Syringe) 50 ml Q15M PRN IV DECREASED GLUCOSE; Start 12/23/16 at 19:00 Glucagon (Glucagen) 1 mg Q15M PRN IM DECREASED GLUCOSE; Start 12/23/16 at 19:00 Glucose (Glutose) 15 gm Q15M PRN BUCCAL DECREASED GLUCOSE; Start 12/23/16 at 19: 00 Pantoprazole (Protonix Tab) 40 mg DAILY@06 PO Last administered on 12/25/16t 05: 09; Admin Dose 40 MG; Start 12/25/16 at 06:00 TRISHA MATAMOROS MD Dec 25, 2016 08:38
[2016-12-25] MEDS: METOPROLOL (XL) 100 MG TAB PO SCH (08:46)
[2016-12-25] MEDS: metFORMIN 500 MG TAB PO SCH ×2 (08:46→17:43)
[2016-12-25] MEDS: DOCUSATE SODIUM 100 MG CAP PO SCH ×2 (08:46→20:52)
[2016-12-25] MEDS: ASCORBIC ACID 500 MG TAB PO SCH (08:47)
[2016-12-25] MEDS: MAGNESIUM OXIDE 400 MG TAB PO SCH ×2 (08:49→20:53)
[2016-12-25] MEDS: VALSARTAN 160 MG TAB PO SCH (08:49)
[2016-12-25] MEDS ORDERED: MAGNESIUM SULFATE 2 GM/50 ML 50 ML IVPB ONE (09:00)
[2016-12-25] MEDS: INSULIN ASPART [NOVOLOG] 3 ML PEN SC SCH ×4 (09:11→20:53)
[2016-12-25] MEDS: HYDROCODONE/APAP (10/325) TAB PO PRN ×2 (09:41→20:57)
--- NOTE | 2016-12-25 09:48 | PN ---
Date/Time of Note Date/Time of Note DATE: 12/25/16 TIME: 09:46 Assessment/Plan Lines/Catheters IV Catheter Type (from Nrsg): Peripheral IV Dhaliwal in Place (from Nrsg): Yes Assessment/Plan Assessment/Plan s/p lumbar fusion - doing well continue physical therapy, ambulate, pain control cardiology consult today Subjective 24 Hr Interval Summary pt feels improvement denies CP Exam/Review of Systems Vital Signs Vitals Vital Signs Date Time Temp Pulse Resp B/P Pulse Ox O2 Delivery O2 Flow Rate FiO2 12/25/16 08:18 98.4 60 20 131/63 93 12/24/16 17:30 Room Air 12/24/16 06:00 2.0 Intake and Output 12/24/16 12/24/16 12/25/16 15:00 23:00 07:00 Intake Total 1900 ml 450 ml 1800 ml Output Total 735 ml 285 ml 1860 ml Balance 1165 ml 165 ml -60 ml Exam Free Text/Dictation NVID AOx3 Results Result Diagram: 12/25/16 0429 12/25/16 0429 MIRANDA CHINO PA-C Dec 25, 2016 09:48
--- NOTE | 2016-12-25 17:49 | PN ---
Date/Time of Note Date/Time of Note DATE: 12/25/16 TIME: 17:48 Assessment/Plan VTE Prophylaxis VTE Prophylaxis Intervention: SCD's Lines/Catheters IV Catheter Type (from Nrs): Peripheral IV Urinary Cath still in place: Yes Reason Cath still needed: urinary retention Assessment/Plan Assessment/Plan Postoperative paroxysmal atrial flutter, currently sinus rhythm Status post spine surgery CAD with history of CABG Hypertension -s/ postoperative atrial flutter. On review of telemetry in the ICU, patient remains in sinus rhythm as well as on ECG this morning. We will continue beta- blockers heart rate and blood pressure permits. Restart anticoagulation when okay by our surgery colleagues. Maintain potassium above 4.0 and magnesium above 2.0 to decrease propensity for arrhythmias. Okay to transfer out of the ICU from a cardiovascular standpoint. Subjective 24 Hr Interval Summary Free Text/Dictation The faptient with no cahgnge Exam/Review of Systems Vital Signs Vitals Vital Signs Date Time Temp Pulse Resp B/P Pulse Ox O2 Delivery O2 Flow Rate FiO2 12/25/16 09:45 16 12/25/16 08:18 98.4 60 131/63 93 12/24/16 17:30 Room Air 12/24/16 06:00 2.0 Intake and Output 12/24/16 12/24/16 12/25/16 15:00 23:00 07:00 Intake Total 1900 ml 450 ml 1800 ml Output Total 735 ml 285 ml 1860 ml Balance 1165 ml 165 ml -60 ml Results Result Diagram: 12/25/16 0429 12/25/16 0429 Results 24 hrs Laboratory Tests Test 12/24/16 20:31 12/25/16 01:26 12/25/16 04:29 12/25/16 08:45 Bedside Glucose 215 208 174 White Blood Count 10.5 Red Blood Count 2.85 L Hemoglobin 9.5 L Hematocrit 27.7 L Mean Corpuscular Volume 97.2 Mean Corpuscular Hemoglobin 33.3 H Mean Corpuscular Hemoglobin Concent 34.3 Red Cell Distribution Width 13.1 Platelet Count 236 Mean Platelet Volume 9.7 Neutrophils % 76.9 Lymphocytes % 9.3 L Monocytes % 12.4 H Eosinophils % 0.6 Basophils % 0.4 Nucleated Red Blood Cells % 0.0 Neutrophils # 8.1 H Lymphocytes # 1.0 Monocytes # 1.3 H Eosinophils # 0.1 Basophils # 0.0 Nucleated Red Blood Cells # 0.0 Sodium Level 132 L Potassium Level 4.6 Chloride Level 94 L Carbon Dioxide Level 27 Anion Gap 16 Blood Urea Nitrogen 12 Creatinine 0.73 Glucose Level 192 Calcium Level 8.2 L Magnesium Level 1.6 L Test 12/25/16 12:31 12/25/16 17:19 Bedside Glucose 232 H 179 Medications Medications Current Medications Potassium Chloride/Sodium Chloride (1/2 NS + KCl 20 Meq) 1,000 ml @ 100 mls/hr Q10H IV Last administered on 12/25/16 15:05; Admin Dose 100 MLS/HR; Start at 16:26 Acetaminophen/ Hydrocodone Bitart ([place] (10/325)) 1 tab Q4H PRN PO PAIN LEVEL 1-5; Start 12/23/16 at 16:30 Acetaminophen/ Hydrocodone Bitart ([place] (10/325)) 2 tab Q4H PRN PO PAIN LEVEL 6-10 Last administered on 12/25/16 09:41; Admin Dose 2 TAB; Start 12/23/16 at 16: 30 Hydromorphone HCl (Dilaudid) 0.2 mg Q1H PRN IV BREAKTHROUGH PAIN; Start at 16:30 Ondansetron HCl (Zofran Inj) 4 mg Q6H PRN IV NAUSEA AND/OR VOMITING; Start 12/23 at 16:30 Bisacodyl (Dulcolax Supp) 10 mg DAILY PRN [place] CONSTIPATION; Start 12/23/16 at 16: 30 Docusate Sodium (Colace) 100 mg BID PO Last administered on 12/25/16 08:46; Admin Dose 100 MG; Start 12/23/16 at 21:00 Al Hydrox/Mg Hydrox/Simethicone (Mag-Al Plus) 15 ml Q6H PRN PO CONSTIPATION/ DYSPEPSIA; Start 12/23/16 at 16:30 Acetaminophen (Tylenol Tab) 650 mg Q4H PRN PO COLLAZO OR TEMP GREATER THAN 101.3F; Start 12/23/16 at 16:30 Cyclobenzaprine HCl (Flexeril) 10 mg TID PRN PO MUSCLE SPASMS; Start 12/23/16 at 16:30 Phenol (Cepastat Lozenge) 1 lozenge PRN PRN [place] SORE THROAT; Start 12/23/16 at 16 :30 Diphenhydramine HCl (Benadryl) 25 mg Q6H PRN IV ITCHING; Start 12/23/16 at 16:30 Naloxone HCl (Narcan) 0.2 mg Q2M PRN IV RR 8 BREATHS/MIN OR LESS; Start at 16:30 Hydromorphone HCl (Dilaudid PIG FARMER) PIG FARMER to be started in PACU Q4PCA IV Last administered on 12/23/16 17:05; Admin Dose 6 MG; Start 12/23/16 at 16:30 Miscellaneous Information 1. Hold PIG FARMER at 1,000... PIG FARMER IV ; Start 12/23/16 at 16: 30 Ascorbic Acid (Vitamin C) 500 mg DAILY PO Last administered on 12/25/16 08:47; Admin Dose 500 MG; Start 12/24/16 at 09:00 Atorvastatin Calcium (Lipitor) 20 mg QHS PO Last administered on 12/24/16 20:33 ; Admin Dose 20 MG; Start 12/23/16 at 21:00 Metoprolol Succinate (Toprol Xl) 100 mg DAILY PO Last administered on 12/25/16 08:46; Admin Dose 100 MG; Start 12/23/16 at 19:00 Ranitidine HCl (Zantac) 150 mg HS PO Last administered on 12/24/16 20:33; Admin Dose 150 MG; Start 12/23/16 at 21:00 Tamsulosin HCl (Flomax) 0.4 mg QHS PO Last administered on 12/24/16 20:33; Admin Dose 0.4 MG; Start 12/23/16 at 21:00 Valsartan (Diovan) 320 mg DAILY PO Last administered on 12/25/16 08:49; Admin Dose 320 MG; Start 12/24/16 at 09:00 Diagnostic Test (Pha) (Accu-Chek) 1 ea 02 XX Last administered on 12/25/16 02: 07; Admin Dose 1 EA; Start 12/24/16 at 02:00 Miscellaneous Information 1 ea NOTE XX ; Start 12/23/16 at 19:00 Glucose (Glutose) 15 gm Q15M PRN PO DECREASED GLUCOSE; Start 12/23/16 at 19:00 Glucose (Glutose) 22.5 gm Q15M PRN PO DECREASED GLUCOSE; Start 12/23/16 at 19:00 Dextrose (D50w Syringe) 25 ml Q15M PRN IV DECREASED GLUCOSE; Start 12/23/16 at 19:00 Dextrose (D50w Syringe) 50 ml Q15M PRN IV DECREASED GLUCOSE; Start 12/23/16 at 19:00 Glucagon (Glucagen) 1 mg Q15M PRN IM DECREASED GLUCOSE; Start 12/23/16 at 19:00 Glucose (Glutose) 15 gm Q15M PRN BUCCAL DECREASED GLUCOSE; Start 12/23/16 at 19: 00 Pantoprazole (Protonix Tab) 40 mg DAILY@06 PO Last administered on 12/25/16 05: 09; Admin Dose 40 MG; Start 12/25/16 at 06:00 Magnesium Oxide (Mag-Ox 400) 400 mg BID PO Last administered on 12/25/16 08:49 ; Admin Dose 400 MG; Start 12/25/16 at 09:00 VIJAYA HUNG MD Dec 25, 2016 17:49
[2016-12-25] MEDS: TAMSULOSIN (SR) 0.4 MG CAP PO SCH (20:52)
[2016-12-25] MEDS: ATORVASTATIN 20 MG TAB PO SCH (20:53)
[2016-12-25] MEDS: RANITIDINE 150 MG TAB PO SCH (20:53)
[2016-12-25 21:19] VITALS: BP 151/67; RESP 20
[2016-12-26] MEDS: ACCU-CHEK XX SCH (02:00)
[2016-12-26] MEDS: 1/2 NS + KCL 20 MEQ 1,000 ML IV SCH ×2 (04:26→14:09)
[2016-12-26] MEDS: PANTOPRAZOLE (EC) 40 MG TAB PO SCH (05:14)
[2016-12-26 05:16] LABS: BASOPHILS % 0.5 % (0.0-2.0); EOSINOPHILS # 0.3 10^3/ul (0.0-0.5); HEMATOCRIT 27.3 % (42.0-52.0); HEMOGLOBIN 9.3 g/dl (14.0-18.0); LYMPHOCYTES # 1.3 10^3/ul (0.8-2.9); LYMPHOCYTES % 15.2 % (15.0-51.0); MEAN CORPUSCULAR HEMOGLOBIN 33.2 pg (29.0-33.0); MEAN CORPUSCULAR HGB CONC 34.1 g/dl (32.0-37.0); MEAN CORPUSCULAR VOLUME 97.5 fl (82.0-101.0); MEAN PLATELET VOLUME 9.8 fl (7.4-10.4); MONOCYTES % 12.2 % (0.0-11.0); NEUTROPHIL # 5.8 10^3/ul (1.6-7.5); NEUTROPHILS % 68.9 % (39.0-77.0); PLATELET COUNT 236 10^3/UL (140-415); RED CELL DISTRIBUTION WIDTH 13.1 % (11.5-14.5); WHITE BLOOD COUNT 8.4 10^3/ul (4.8-10.8)
[2016-12-26 05:49] LABS: CALCIUM 8.6 mg/dl (8.4-10.2); CREATININE 0.74 mg/dl (0.61-1.24); MAGNESIUM 1.7 mg/dl (1.7-2.5); POTASSIUM 4.5 mmol/L (3.5-5.1)
[2016-12-26 08:00] VITALS: BP 129/62; RESP 20
--- NOTE | 2016-12-26 08:00 | DS ---
Date/Time of Note Date/Time of Note DATE: 12/26/16 TIME: 07:56 Discharge Summary Admission/Discharge Info Admit Date/Time Dec 23, 2016 at 08:33 Discharge Date/Time Dec 26 Discharge Diagnosis L5-S1 fusion Patient Condition: Good Procedures TLIF L5-S1 Hospital Course the patient was admitted to the ICU after undergoing lumbar fusion. On post op day 1 he was transferred to ortho [place]. his port-op course was uncomplicated. by post op day 2 he was deemed stable for d/c with follow-up arranged with the undersigned. Home Meds Reported Medications Garlic Extract* (Garlic*) 600 Mg Tablet, 600 MG PO DAILY, TAB 12/23/16 [place]-3 Fatty Acids/Fish Oil (Fish Oil Conc 1,000 mg Softgel) 1 Each Capsule, 1 EACH PO DAILY, CAP 12/23/16 Calcium/Vitamin D (Oyster Shell W/Vit D) 1 Tab Tab, 1 TAB PO DAILY, TAB 12/23/16 Ascorbic Acid* (Vitamin C*) 500 Mg Capsule.sa, 500 MG PO DAILY, CAP 12/23/16 Cyanocobalamin* (Vitamin B12*) 100 Mcg Tab, 100 MCG PO DAILY, TAB 12/23/16 Aspirin* (Aspirin* Chew) 81 Mg Tab.chew, 81 MG PO DAILY, TAB.CHEW 12/23/16 Metoprolol Succinate* (Toprol XL*) 100 Mg Tab.sr.24h, 100 MG PO DAILY, #30 TAB 12/23/16 Ranitidine Hcl* (Ranitidine Hcl*) 150 Mg Tablet, 150 MG PO HS, #30 TAB 12/23/16 Glimepiride* (Glimepiride*) 1 Mg Tablet, 0.5 MG PO DAILY, TAB 12/23/16 Valsartan* (Diovan*) 320 Mg Tablet, 320 MG PO DAILY, TAB 12/23/16 Atorvastatin Calcium* (Atorvastatin Calcium*) 20 Mg Tablet, 20 MG PO QHS, TAB 07/28/14 Omeprazole* (Omeprazole*) 20 Mg Capsule.dr, 20 MG PO AC BREAKFAST, CAP 07/28/14 Tamsulosin Hcl* (Tamsulosin Hcl*) 0.4 Mg Cap.er.24h, 0.4 MG PO QHS 12/31/12 Metformin* (Glucophage*) 500 Mg Tab, 1000 MG PO BID, 0 Refills 12/27/11 Discontinued Reported Medications Travoprost* (Travatan*) 0.004%-2.5 Ml Opht, 1 DROP BOTH EYES HS, EA 07/28/14 Glucosamine/Msm/Chondroitin A (TRIPLE FLEX CAPLET) 1 Each Tablet, 2 EACH PO DAILY 07/28/14 Docusate Sodium* (Dok*) 100 Mg Tablet, 100 MG PO TID, CAP 07/28/14 Metoprolol Tartrate* (Lopressor*) 50 Mg Tab, 50 MG PO DAILY, TAB 07/28/14 Amlodipine Besylate* (Norvasc*) 5 Mg Tablet, 5 MG PO DAILY, TAB 07/28/14 [Losartan] No Conflict Check, 100 MG DAILY 12/31/12 Multivitamins* (Multivitamins*) 1 Tab Tablet, 1 TAB PO DAILY 01/16/12 Pending Labs Laboratory Tests Test 12/25/16 08:45 12/25/16 12:31 12/25/16 17:19 12/25/16 20:51 Bedside Glucose 174mg/dL (70-220) 232mg/dL (70-220) 179mg/dL (70-220) 159mg/dL (70-220) Test 12/26/16 04:41 White Blood Count 8.410^3/ul (4.8-10.8) Red Blood Count 2.8010^6/ul (4.70-6.10) Hemoglobin 9.3g/dl (14.0-18.0) Hematocrit 27.3% (42.0-52.0) Mean Corpuscular Volume 97.5fl (82.0-101.0) Mean Corpuscular Hemoglobin 33.2pg (29.0-33.0) Mean Corpuscular Hemoglobin Concent 34.1g/dl (32.0-37.0) Red Cell Distribution Width 13.1% (11.5-14.5) Platelet Count 48184^3/UL (140-415) Mean Platelet Volume 9.8fl (7.4-10.4) Neutrophils % 68.9% (39.0-77.0) Lymphocytes % 15.2% (15.0-51.0) Monocytes % 12.2% (0.0-11.0) Eosinophils % 3.0% (0.0-7.0) Basophils % 0.5% (0.0-2.0) Nucleated Red Blood Cells % 0.0/100WBC (0.0-0.0) Neutrophils # 5.810^3/ul (1.6-7.5) Lymphocytes # 1.310^3/ul (0.8-2.9) Monocytes # 1.010^3/ul (0.3-0.9) Eosinophils # 0.310^3/ul (0.0-0.5) Basophils # 0.010^3/ul (0.0-0.1) Nucleated Red Blood Cells # 0.010^3/ul (0.0-0.0) Sodium Level 134mmol/L (135-144) Potassium Level 4.5mmol/L (3.5-5.1) Chloride Level 94mmol/L (97-110) Carbon Dioxide Level 29mmol/L (21-31) Anion Gap 16 (8-16) Blood Urea Nitrogen 14mg/dl (7-20) Creatinine 0.74mg/dl (0.61-1.24) Glucose Level 142mg/dl (70-220) Calcium Level 8.6mg/dl (8.4-10.2) Magnesium Level 1.7mg/dl (1.7-2.5) WYATT NIÑO MD Dec 26, 2016 08:00
--- NOTE | 2016-12-26 08:02 | QN ---
Documentation Comment the patient is stable to be discharged from ortho standpoint. May start anticoagulation at this time per cardiology recs WYATT NIÑO MD Dec 26, 2016 08:01
--- NOTE | 2016-12-26 08:03 | PN ---
Date/Time of Note Date/Time of Note DATE: 12/26/16 TIME: 08:01 Assessment/Plan VTE Prophylaxis VTE Prophylaxis Intervention: SCD's Lines/Catheters IV [facility] Type [facility]from [facility] [place] [employer] Central line still needed: No Urinary Cath still in place: Yes Reason Cath still needed: urinary retention Assessment/Plan Assessment/Plan Postoperative paroxysmal atrial flutter, currently sinus rhythm Status post spine surgery CAD with history of CABG Hypertension -s/p postoperative atrial flutter but now nsr. On review of telemetry in the ICU, patient remains in sinus rhythm as well as on ECG this morning. We will continue beta-blockers heart rate and blood pressure permits. Restart anticoagulation when okay by our surgery colleagues. Maintain potassium above 4.0 and magnesium above 2.0 to decrease propensity for arrhythmias. Okay to transfer out of the ICU from a cardiovascular standpoint. Subjective 24 Hr Interval Summary Free Text/Dictation The patient with no complaints Exam/Review of Systems Vital Signs Vitals Vital Signs Date Time Temp Pulse Resp B/P Pulse Ox O2 Delivery O2 Flow Rate FiO2 12/25/16 21:19 98.0 57 20 151/67 100 12/24/16 17:30 Room Air 12/24/16 06:00 2.0 Intake and Output 12/25/16 12/25/16 12/26/16 15:00 23:00 07:00 Intake Total 50 ml 1380 ml 1000 ml Output Total 720 ml 1560 ml Balance 50 ml 660 ml -560 ml Results Result Diagram: 12/26/16 0441 12/26/16 0441 Results 24 hrs Laboratory Tests Test 12/25/16 08:45 12/25/16 12:31 12/25/16 17:19 12/25/16 20:51 Bedside Glucose 174 232 H 179 159 Test 12/26/16 04:41 White Blood Count 8.4 Red Blood Count 2.80 L Hemoglobin 9.3 L Hematocrit 27.3 L Mean Corpuscular Volume 97.5 Mean Corpuscular Hemoglobin 33.2 H Mean Corpuscular Hemoglobin Concent 34.1 Red Cell Distribution Width 13.1 Platelet Count 236 Mean Platelet Volume 9.8 Neutrophils % 68.9 Lymphocytes % 15.2 Monocytes % 12.2 H Eosinophils % 3.0 Basophils % 0.5 Nucleated Red Blood Cells % 0.0 Neutrophils # 5.8 Lymphocytes # 1.3 Monocytes # 1.0 H Eosinophils # 0.3 Basophils # 0.0 Nucleated Red Blood Cells # 0.0 Sodium Level 134 L Potassium Level 4.5 Chloride Level 94 L Carbon Dioxide Level 29 Anion Gap 16 Blood Urea Nitrogen 14 Creatinine 0.74 Glucose Level 142 # Calcium Level 8.6 Magnesium Level 1.7 Medications Medications Current Medications Potassium Chloride/Sodium Chloride (1/2 NS + KCl 20 Meq) 1,000 ml @ 100 mls/hr Q10H IV Last administered on 12/25/16 15:05; Admin Dose 100 MLS/HR; Start at 16:26 Acetaminophen/ Hydrocodone Bitart ([place] (10325)) 1 tab Q4H PRN PO PAIN LEVEL 1-5; Start 12/23/16 at 16:30 Acetaminophen/ Hydrocodone Bitart ([place] (10325)) 2 tab Q4H PRN PO PAIN LEVEL 6-10 Last administered on 12/25/16 20:57; Admin Dose 2 TAB; Start 12/23/16 at 16: 30 Hydromorphone HCl (Dilaudid) 0.2 mg Q1H PRN IV BREAKTHROUGH PAIN; Start at 16:30 Ondansetron HCl (Zofran Inj) 4 mg Q6H PRN IV NAUSEA AND/OR VOMITING; Start 12/23 at 16:30 Bisacodyl (Dulcolax Supp) 10 mg DAILY PRN [place] CONSTIPATION; Start 12/23/16 at 16: 30 Docusate Sodium (Colace) 100 mg BID PO Last administered on 12/25/16 20:52; Admin Dose 100 MG; Start 12/23/16 at 21:00 Al Hydrox/Mg Hydrox/Simethicone (Mag-Al Plus) 15 ml Q6H PRN PO CONSTIPATION/ DYSPEPSIA; Start 12/23/16 at 16:30 Acetaminophen (Tylenol Tab) 650 mg Q4H PRN PO COLLAZO OR TEMP GREATER THAN 101.3F; Start 12/23/16 at 16:30 Cyclobenzaprine HCl (Flexeril) 10 mg TID PRN PO MUSCLE SPASMS; Start 12/23/16 at 16:30 Phenol (Cepastat Lozenge) 1 lozenge PRN PRN MT SORE THROAT; Start 12/23/16 at 16 :30 Diphenhydramine HCl (Benadryl) 25 mg Q6H PRN IV ITCHING; Start 12/23/16 at 16:30 Naloxone HCl (Narcan) 0.2 mg Q2M PRN IV RR 8 BREATHS/MIN OR LESS; Start at 16:30 Hydromorphone HCl (Dilaudid IRON ERECTOR) IRON ERECTOR to be started in PACU Q4PCA IV Last administered on 12/23/16 17:05; Admin Dose 6 MG; Start 12/23/16 at 16:30 Miscellaneous Information 1. Hold IRON ERECTOR at 1,000... IRON ERECTOR IV ; Start 12/23/16 at 16: 30 Ascorbic Acid (Vitamin C) 500 mg DAILY PO Last administered on 12/25/16 08:47; Admin Dose 500 MG; Start 12/24/16 at 09:00 Atorvastatin Calcium (Lipitor) 20 mg QHS PO Last administered on 12/25/16 20:53 ; Admin Dose 20 MG; Start 12/23/16 at 21:00 Metoprolol Succinate (Toprol Xl) 100 mg DAILY PO Last administered on 12/25/16 08:46; Admin Dose 100 MG; Start 12/23/16 at 19:00 Ranitidine HCl (Zantac) 150 mg HS PO Last administered on 12/25/16 20:53; Admin Dose 150 MG; Start 12/23/16 at 21:00 Tamsulosin HCl (Flomax) 0.4 mg QHS PO Last administered on 12/25/16 20:52; Admin Dose 0.4 MG; Start 12/23/16 at 21:00 Valsartan (Diovan) 320 mg DAILY PO Last administered on 12/25/16 08:49; Admin Dose 320 MG; Start 12/24/16 at 09:00 Diagnostic Test (Pha) (Accu-Chek) 1 ea 02 XX Last administered on 12/25/16 02: 07; Admin Dose 1 EA; Start 12/24/16 at 02:00 Miscellaneous Information 1 ea NOTE XX ; Start 12/23/16 at 19:00 Glucose (Glutose) 15 gm Q15M PRN PO DECREASED GLUCOSE; Start 12/23/16 at 19:00 Glucose (Glutose) 22.5 gm Q15M PRN PO DECREASED GLUCOSE; Start 12/23/16 at 19:00 Dextrose (D50w Syringe) 25 ml Q15M PRN IV DECREASED GLUCOSE; Start 12/23/16 at 19:00 Dextrose (D50w Syringe) 50 ml Q15M PRN IV DECREASED GLUCOSE; Start 12/23/16 at 19:00 Glucagon (Glucagen) 1 mg Q15M PRN IM DECREASED GLUCOSE; Start 12/23/16 at 19:00 Glucose (Glutose) 15 gm Q15M PRN BUCCAL DECREASED GLUCOSE; Start 12/23/16 at 19: 00 Pantoprazole (Protonix Tab) 40 mg DAILY@06 PO Last administered on 12/26/16 05 :14; Admin Dose 40 MG; Start 12/25/16 at 06:00 Magnesium Oxide (Mag-Ox 400) 400 mg BID PO Last administered on 12/25/16 20:53 ; Admin Dose 400 MG; Start 12/25/16 at 09:00 VIJAYA HUNG MD Dec 26, 2016 08:03
[2016-12-26] MEDS: MAGNESIUM OXIDE 400 MG TAB PO SCH ×2 (08:47→20:27)
[2016-12-26] MEDS: DOCUSATE SODIUM 100 MG CAP PO SCH ×2 (08:47→20:27)
[2016-12-26] MEDS: VALSARTAN 160 MG TAB PO SCH (08:47)
[2016-12-26] MEDS: metFORMIN 500 MG TAB PO SCH ×2 (08:47→18:31)
[2016-12-26] MEDS: ASCORBIC ACID 500 MG TAB PO SCH (08:47)
[2016-12-26] MEDS: METOPROLOL (XL) 100 MG TAB PO SCH (08:48)
[2016-12-26] MEDS: INSULIN ASPART [NOVOLOG] 3 ML PEN SC SCH ×4 (08:52→21:00)
--- NOTE | 2016-12-26 09:34 | CONS ---
Date/Time of Note Date/Time of Note DATE: 12/26/16 TIME: 09:31 Assessment/Plan Assessment/Plan Chief Complaint/Hosp Course 1. He is 3 days postop a lumbar sacral spine surgery. He had difficulty urinating yesterday and a urethral catheterization was done which showed more than 400 cc of residual urine in the bladder. He continues to have a problem with high post void urinary bladder residual. He has a history of prostatism and is on medication. I will call a urologist to see him. 2. History of atrial flutter. The patient is now in sinus rhythm. Cardiology has been following the patient. 3. Hypertension controlled 4. Type 2 diabetes mellitus. Will restart diabetic medication. 5. Hypomagnesemia. We will replace magnesium. 6. Coronary artery disease the patient is not having any chest pain or shortness of breath Problems: Consultation Date/Type/Reason Admit Date/Time Dec 23, 2016 at 08:33 Type of Consultation: cv 24 HR Interval Summary Free Text/Dictation He is now 3 days postop lumbar spine surgery. He is awake and alert. He has had high post void residual urine amounts. He has required urethral catheterization. He has a history of prostatism. Constitutional: improved, no complaints Exam/Review of Systems Vital Signs Vitals Vital Signs Date Time Temp Pulse Resp B/P Pulse Ox O2 Delivery O2 Flow Rate FiO2 12/26/16 08:00 99.3 69 20 129/62 95 12/24/16 17:30 Room Air 12/24/16 06:00 2.0 Intake and Output 12/25/16 12/25/16 12/26/16 15:00 23:00 07:00 Intake Total 50 ml 1380 ml 1000 ml Output Total 720 ml 1560 ml Balance 50 ml 660 ml -560 ml Exam Constitutional: alert, frail, oriented Psych: no complaints Respiratory: clear to auscultation, normal air movement Cardiovascular: regular rate and rhythm Gastrointestinal: non-tender, soft Musculoskeletal: nl extremities to inspection Results Result Diagram: 12/26/16 0441 12/26/16 0441 Results 24 hrs Laboratory Tests Test 12/25/16 12:31 12/25/16 17:19 12/25/16 20:51 12/26/16 04:41 Bedside Glucose 232 H 179 159 White Blood Count 8.4 Red Blood Count 2.80 L Hemoglobin 9.3 L Hematocrit 27.3 L Mean Corpuscular Volume 97.5 Mean Corpuscular Hemoglobin 33.2 H Mean Corpuscular Hemoglobin Concent 34.1 Red Cell Distribution Width 13.1 Platelet Count 236 Mean Platelet Volume 9.8 Neutrophils % 68.9 Lymphocytes % 15.2 Monocytes % 12.2 H Eosinophils % 3.0 Basophils % 0.5 Nucleated Red Blood Cells % 0.0 Neutrophils # 5.8 Lymphocytes # 1.3 Monocytes # 1.0 H Eosinophils # 0.3 Basophils # 0.0 Nucleated Red Blood Cells # 0.0 Sodium Level 134 L Potassium Level 4.5 Chloride Level 94 L Carbon Dioxide Level 29 Anion Gap 16 Blood Urea Nitrogen 14 Creatinine 0.74 Glucose Level 142 # Calcium Level 8.6 Magnesium Level 1.7 Test 12/26/16 08:45 Bedside Glucose 160 Medications Medications Current Medications Potassium Chloride/Sodium Chloride (05/20 NS + KCl 20 Meq) 1,000 ml @ 100 mls/hr Q10H IV Last administered on 12/25/16 15:05; Admin Dose 100 MLS/HR; Start at 16:26 Acetaminophen/ Hydrocodone Bitart ([place] (10/325)) 1 tab Q4H PRN PO PAIN LEVEL 1-5; Start 12/23/16 at 16:30 Acetaminophen/ Hydrocodone Bitart ([place] (10/325)) 2 tab Q4H PRN PO PAIN LEVEL 6-10 Last administered on 12/25/16 20:57; Admin Dose 2 TAB; Start 12/23/16 at 16: 30 Hydromorphone HCl (Dilaudid) 0.2 mg Q1H PRN IV BREAKTHROUGH PAIN; Start at 16:30 Ondansetron HCl (Zofran Inj) 4 mg Q6H PRN IV NAUSEA AND/OR VOMITING; Start 12/23 at 16:30 Bisacodyl (Dulcolax Supp) 10 mg DAILY PRN [place] CONSTIPATION; Start 12/23/16 at 16: 30 Docusate Sodium (Colace) 100 mg BID PO Last administered on 12/26/16 08:47; Admin Dose 100 MG; Start 12/23/16 at 21:00 Al Hydrox/Mg Hydrox/Simethicone (Mag-Al Plus) 15 ml Q6H PRN PO CONSTIPATION/ DYSPEPSIA; Start 12/23/16 at 16:30 Acetaminophen (Tylenol Tab) 650 mg Q4H PRN PO COLLAZO OR TEMP GREATER THAN 101.3F; Start 12/23/16 at 16:30 Cyclobenzaprine HCl (Flexeril) 10 mg TID PRN PO MUSCLE SPASMS; Start 12/23/16 at 16:30 Phenol (Cepastat Lozenge) 1 lozenge PRN PRN [place] SORE THROAT; Start 12/23/16 at 16 :30 Diphenhydramine HCl (Benadryl) 25 mg Q6H PRN IV ITCHING; Start 12/23/16 at 16:30 Naloxone HCl (Narcan) 0.2 mg Q2M PRN IV RR 8 BREATHS/MIN OR LESS; Start at 16:30 Hydromorphone HCl (Dilaudid TEST DATA DEVELOPER) TEST DATA DEVELOPER to be started in PACU Q4PCA IV Last administered on 12/23/16 17:05; Admin Dose 6 MG; Start 12/23/16 at 16:30 Miscellaneous Information 1. Hold TEST DATA DEVELOPER at 1,000... TEST DATA DEVELOPER IV ; Start 12/23/16 at 16: 30 Ascorbic Acid (Vitamin C) 500 mg DAILY PO Last administered on 12/26/16 08:47 ; Admin Dose 500 MG; Start 12/24/16 at 09:00 Atorvastatin Calcium (Lipitor) 20 mg QHS PO Last administered on 12/25/16 20:53 ; Admin Dose 20 MG; Start 12/23/16 at 21:00 Metoprolol Succinate (Toprol Xl) 100 mg DAILY PO Last administered on 08:48; Admin Dose 100 MG; Start 12/23/16 at 19:00 Ranitidine HCl (Zantac) 150 mg HS PO Last administered on 12/25/16 20:53; Admin Dose 150 MG; Start 12/23/16 at 21:00 Tamsulosin HCl (Flomax) 0.4 mg QHS PO Last administered on 12/25/16 20:52; Admin Dose 0.4 MG; Start 12/23/16 at 21:00 Valsartan (Diovan) 320 mg DAILY PO Last administered on 12/26/16 08:47; Admin Dose 320 MG; Start 12/24/16 at 09:00 Diagnostic Test (Pha) (Accu-Chek) 1 ea 02 XX Last administered on 12/25/16 02: 07; Admin Dose 1 EA; Start 12/24/16 at 02:00 Miscellaneous Information 1 ea NOTE XX ; Start 12/23/16 at 19:00 Glucose (Glutose) 15 gm Q15M PRN PO DECREASED GLUCOSE; Start 12/23/16 at 19:00 Glucose (Glutose) 22.5 gm Q15M PRN PO DECREASED GLUCOSE; Start 12/23/16 at 19:00 Dextrose (D50w Syringe) 25 ml Q15M PRN IV DECREASED GLUCOSE; Start 12/23/16 at 19:00 Dextrose (D50w Syringe) 50 ml Q15M PRN IV DECREASED GLUCOSE; Start 12/23/16 at 19:00 Glucagon (Glucagen) 1 mg Q15M PRN IM DECREASED GLUCOSE; Start 12/23/16 at 19:00 Glucose (Glutose) 15 gm Q15M PRN BUCCAL DECREASED GLUCOSE; Start 12/23/16 at 19: 00 Pantoprazole (Protonix Tab) 40 mg DAILY@06 PO Last administered on 12/26/16 05 :14; Admin Dose 40 MG; Start 12/25/16 at 06:00 Magnesium Oxide (Mag-Ox 400) 400 mg BID PO Last administered on 12/26/16 08:47 ; Admin Dose 400 MG; Start 12/25/16 at 09:00 TRISHA MATAMOROS MD Dec 26, 2016 09:34
[2016-12-26] MEDS: HYDROCODONE/APAP (10/325) TAB PO PRN (12:16)
[2016-12-26] MEDS: AL HYDROX/MG HYDROX/SIMETH 30 ML CUP PO PRN (12:17)
[2016-12-26 14:00] VITALS: BP 146/56; RESP 18
--- NOTE | 2016-12-26 14:02 | CONS ---
Date/Time of Note Date/Time of Note DATE: 12/26/16 TIME: 14:01 Assessment/Plan Assessment/Plan Chief Complaint/Hosp Course This patient does have urinary retention and this may have been chronic as he was having urgency urgency incontinence and also wetting his underwear and pajama at night for over 1 year. He has a high postvoid residual and require straight catheterization. He just voided about 100 mL and was catheterized for 500 mL. I had ordered earlier pelvic ultrasound to check the pre-and post void bladder volume and the prostate size. However it appears the hearing aid technician was not able to visualize the prostate well. I have increased his tamsulosin to twice a day. I will also start him on a low-dose Urecholine and continue to monitor his postvoid residual and do straight cath on him for a postvoid residual of 300 mL or if he does not urinate and the bladder volume is over 500 mL. I am going also to order a PSA on him to be done on the blood drawn earlier preferably on admission. Problems: Consultation Date/Type/Reason Admit Date/Time Dec 23, 2016 at 08:33 Date of Consultation: Dec 26, 2016 Type of Consultation: Urology Reason for Consultation Urinary retention Referring Provider: TRISHA MATAMOROS MD Hx of Present Illness Patient is a 71-year-old male who was admitted for spine surgery on December 23, 2016 . He did have a Dhaliwal catheter and when was that removed he was not able to empty his bladder requiring intermittent catheterization therefore a urological consultation was requested. I saw the patient and his daughter was at his bedside and basically he states that prior to his surgery he was having nocturia 4-5 times at night. Daytime he was voiding 3-4 times. He did have urgency and urgency incontinence for over 1 year he does have dysuria sometime and postvoid dribbling. He states that he feels he empties his bladder but he was having incontinence where he he wets his underwear and his pajama at night. His medical doctor Dr. Hany Logan was giving him finasteride 5 mg and tamsulosin 0.4 mg daily. The patient denies any prior urological surgery. Constitutional: no complaints Eyes: no complaints, other (History of bilateral cataract surgery) ENT: no complaints Respiratory: no complaints Cardiovascular: No chest pain Gastrointestinal: no complaints, other (Heartburn) Musculoskeletal: back pain Skin: no complaints Neurologic: no complaints Endocrine: other (History of diabetes) Psychological: no complaints Immunologic: no complaints Past Medical History Medical History: coronary artery disease, diabetes, high cholesterol, hypertension Past Surgical History Past Surgical Hx: coronary bypass surgery, other (Bilateral cataract surgery and recent back surgery) Family History Significant Family History: no pertinent family hx Social History Smoking Status: Former smoker Exam/Review of Systems Vital Signs Vitals Vital Signs Date Time Temp Pulse Resp B/P Pulse Ox O2 Delivery O2 Flow Rate FiO2 12/26/16 08:00 99.3 69 20 129/62 95 12/24/16 17:30 Room Air 12/24/16 06:00 2.0 Intake and Output 12/25/16 12/25/16 12/26/16 15:00 23:00 07:00 Intake Total 50 ml 1380 ml 1000 ml Output Total 720 ml 1560 ml Balance 50 ml 660 ml -560 ml Exam Constitutional: alert, oriented Psych: no complaints Head: normocephalic Eyes: nl conjunctiva ENMT: nl external ears & nose Neck: supple Respiratory: normal air movement Cardiovascular: nl pulses Gastrointestinal: soft Genitourinary - Male: other (Rectal examination revealed mildly enlarged prostate.), No CVA tenderness Musculoskeletal: other (Status post spine surgery, has pain when moving) Extremities: No calf tenderness, No edema Skin: nl turgor Results Result Diagram: 12/26/1644012/26/16 044 Results 24 hrs Laboratory Tests Test 12/25/16 17:19 12/25/16 20:51 12/26/16 04:41 12/26/16 08:45 Bedside Glucose 179 159 160 White Blood Count 8.4 Red Blood Count 2.80 L Hemoglobin 9.3 L Hematocrit 27.3 L Mean Corpuscular Volume 97.5 Mean Corpuscular Hemoglobin 33.2 H Mean Corpuscular Hemoglobin Concent 34.1 Red Cell Distribution Width 13.1 Platelet Count 236 Mean Platelet Volume 9.8 Neutrophils % 68.9 Lymphocytes % 15.2 Monocytes % 12.2 H Eosinophils % 3.0 Basophils % 0.5 Nucleated Red Blood Cells % 0.0 Neutrophils # 5.8 Lymphocytes # 1.3 Monocytes # 1.0 H Eosinophils # 0.3 Basophils # 0.0 Nucleated Red Blood Cells # 0.0 Sodium Level 134 L Potassium Level 4.5 Chloride Level 94 L Carbon Dioxide Level 29 Anion Gap 16 Blood Urea Nitrogen 14 Creatinine 0.74 Glucose Level 142 # Calcium Level 8.6 Magnesium Level 1.7 Test 12/26/16 12:59 Bedside Glucose 208 Medications Medications Current Medications Potassium Chloride/Sodium Chloride (1/2 NS + KCl 20 Meq) 1,000 ml @ 100 mls/hr Q10H IV Last administered on 12/25/16 15:05; Admin Dose 100 MLS/HR; Start at 16:26 Acetaminophen/ Hydrocodone Bitart ([place] (10/325)) 1 tab Q4H PRN PO PAIN LEVEL 1-5; Start 12/23/16 at 16:30 Acetaminophen/ Hydrocodone Bitart ([place] (10/325)) 2 tab Q4H PRN PO PAIN LEVEL 6-10 Last administered on 12/26/16 12:16; Admin Dose 2 TAB; Start 12/23/16 at 16 :30 Hydromorphone HCl (Dilaudid) 0.2 mg Q1H PRN IV BREAKTHROUGH PAIN; Start at 16:30 Ondansetron HCl (Zofran Inj) 4 mg Q6H PRN IV NAUSEA AND/OR VOMITING; Start 12/23 at 16:30 Bisacodyl (Dulcolax Supp) 10 mg DAILY PRN [place] CONSTIPATION; Start 12/23/16 at 16: 30 Docusate Sodium (Colace) 100 mg BID PO Last administered on 12/26/16 08:47; Admin Dose 100 MG; Start 12/23/16 at 21:00 Al Hydrox/Mg Hydrox/Simethicone (Mag-Al Plus) 15 ml Q6H PRN PO CONSTIPATION/ DYSPEPSIA Last administered on 12/26/16 12:17; Admin Dose 15 ML; Start 12/23/16 at 16:30 Acetaminophen (Tylenol Tab) 650 mg Q4H PRN PO COLLAZO OR TEMP GREATER THAN 101.3F; Start 12/23/16 at 16:30 Cyclobenzaprine HCl (Flexeril) 10 mg TID PRN PO MUSCLE SPASMS; Start 12/23/16 at 16:30 Phenol (Cepastat Lozenge) 1 lozenge PRN PRN [place] SORE THROAT; Start 12/23/16 at 16 :30 Diphenhydramine HCl (Benadryl) 25 mg Q6H PRN IV ITCHING; Start 12/23/16 at 16:30 Naloxone HCl (Narcan) 0.2 mg Q2M PRN IV RR 8 BREATHS/MIN OR LESS; Start at 16:30 Hydromorphone HCl (Dilaudid VP HR DIVERSITY) VP HR DIVERSITY to be started in PACU Q4PCA IV Last administered on 12/23/16 17:05; Admin Dose 6 MG; Start 12/23/16 at 16:30 Miscellaneous Information 1. Hold VP HR DIVERSITY at 1,000... VP HR DIVERSITY IV ; Start 12/23/16 at 16: 30 Ascorbic Acid (Vitamin C) 500 mg DAILY PO Last administered on 12/26/16 08:47 ; Admin Dose 500 MG; Start 12/24/16 at 09:00 Atorvastatin Calcium (Lipitor) 20 mg QHS PO Last administered on 12/25/16 20:53 ; Admin Dose 20 MG; Start 12/23/16 at 21:00 Metoprolol Succinate (Toprol Xl) 100 mg DAILY PO Last administered on 08:48; Admin Dose 100 MG; Start 12/23/16 at 19:00 Ranitidine HCl (Zantac) 150 mg HS PO Last administered on 12/25/16 20:53; Admin Dose 150 MG; Start 12/23/16 at 21:00 Tamsulosin HCl (Flomax) 0.4 mg QHS PO Last administered on 12/25/16 20:52; Admin Dose 0.4 MG; Start 12/23/16 at 21:00 Valsartan (Diovan) 320 mg DAILY PO Last administered on 12/26/16 08:47; Admin Dose 320 MG; Start 12/24/16 at 09:00 Diagnostic Test (Pha) (Accu-Chek) 1 ea 02 XX Last administered on 12/25/16 02: 07; Admin Dose 1 EA; Start 12/24/16 at 02:00 Miscellaneous Information 1 ea NOTE XX ; Start 12/23/16 at 19:00 Glucose (Glutose) 15 gm Q15M PRN PO DECREASED GLUCOSE; Start 12/23/16 at 19:00 Glucose (Glutose) 22.5 gm Q15M PRN PO DECREASED GLUCOSE; Start 12/23/16 at 19:00 Dextrose (D50w Syringe) 25 ml Q15M PRN IV DECREASED GLUCOSE; Start 12/23/16 at 19:00 Dextrose (D50w Syringe) 50 ml Q15M PRN IV DECREASED GLUCOSE; Start 12/23/16 at 19:00 Glucagon (Glucagen) 1 mg Q15M PRN IM DECREASED GLUCOSE; Start 12/23/16 at 19:00 Glucose (Glutose) 15 gm Q15M PRN BUCCAL DECREASED GLUCOSE; Start 12/23/16 at 19: 00 Pantoprazole (Protonix Tab) 40 mg DAILY@06 PO Last administered on 12/26/16 05 :14; Admin Dose 40 MG; Start 12/25/16 at 06:00 Magnesium Oxide (Mag-Ox 400) 400 mg BID PO Last administered on 12/26/16 08:47 ; Admin Dose 400 MG; Start 12/25/16 at 09:00 WINNIE COLLINS MD Dec 26, 2016 14:02
[2016-12-26] MEDS: TAMSULOSIN (SR) 0.4 MG CAP PO SCH ×2 (15:13→20:27)
--- NOTE | 2016-12-26 17:04 | RADRPT ---
PROCEDURE: US bladder . CLINICAL INDICATION: Pelvic pain TECHNIQUE: Multiple sonographic images of the pelvis were obtained utilizing a transabdominal tech nique. The images were reviewed on a PACS workstation. COMPARISON: None. FINDINGS: The prevoid bladder has a volume of 343 cc. The postvoid bladder has a volume of 180 cc. This corresponds to a postvoid residual 52 %. The bladder demonstrates an unremarkable appearance. The prostate is incompletely visualized, but ap pears to cause impression upon the base of the bladder. IMPRESSION: 52 % Postvoid bladder residual. Incompletely visualized prostate that appears to cause impression upon the base of the bladder. The prostate may be enlarged. Correlation with physical exam is recommended. If further characterizat ion of the prostate is needed MRI can be considered. RPTAT: AA .Óscar Bell MD, Date Time Electronically viewed and signed by .Óscar Bell MD, on 12/26/2016 17:04 .P/
[2016-12-26 19:45] VITALS: BP 127/60; RESP 18
[2016-12-26] MEDS: RANITIDINE 150 MG TAB PO SCH (20:27)
[2016-12-26] MEDS: ATORVASTATIN 20 MG TAB PO SCH (20:27)
[2016-12-26] MEDS: BETHANECHOL 10 MG TAB PO SCH (21:00)
[2016-12-27] MEDS: 1/2 NS + KCL 20 MEQ 1,000 ML IV SCH ×3 (00:26→20:26)
[2016-12-27] MEDS: ACCU-CHEK XX SCH ×2 (02:00→21:27)
[2016-12-27 02:20] VITALS: BP 148/67; RESP 18
[2016-12-27] MEDS: PANTOPRAZOLE (EC) 40 MG TAB PO SCH (05:51)
--- NOTE | 2016-12-27 07:59 | PN ---
Date/Time of Note Date/Time of Note DATE: 12/27/16 TIME: 07:54 Assessment/Plan VTE Prophylaxis VTE Prophylaxis Intervention: SCD's Lines/Catheters IV Catheter Type (from Nrsg): Peripheral IV Urinary Cath still in place: No Assessment/Plan Assessment/Plan Postoperative paroxysmal atrial flutter, currently sinus rhythm Status post spine surgery CAD with history of CABG Hypertension -s/p postoperative atrial flutter but now nsr. -We will continue beta-blockers heart rate and blood pressure permits.\ - Maintain potassium above 4.0 and magnesium above 2.0 to decrease propensity for arrhythmias. -Resume anticoagulation when ok with surgery Subjective 24 Hr Interval Summary Free Text/Dictation The patient withno sympoms and no palpitaitons Exam/Review of Systems Vital Signs Vitals Vital Signs Date Time Temp Pulse Resp B/P Pulse Ox O2 Delivery O2 Flow Rate FiO2 12/27/16 02:20 99.3 66 18 148/67 94 12/24/16 17:30 Room Air 12/24/16 06:00 2.0 Intake and Output 12/26/16 12/26/16 12/27/16 15:00 23:00 07:00 Intake Total 1600 ml 700 ml Output Total 550 ml 1200 ml Balance 1050 ml -500 ml Results Result Diagram: 12/26/161 12/26/16 0441 Results 24 hrs Laboratory Tests Test 12/26/16 08:45 12/26/16 12:59 12/26/16 17:54 12/26/16 20:25 Bedside Glucose 160 208 137 187 Medications Medications Current Medications Potassium Chloride/Sodium Chloride (1/2 NS + KCl 20 Meq) 1,000 ml @ 100 mls/hr Q10H IV Last administered on 12/25/16 15:05; Admin Dose 100 MLS/HR; Start at 16:26 Acetaminophen/ Hydrocodone Bitart ([place] (10/325)) 1 tab Q4H PRN PO PAIN LEVEL 1-5 Last administered on 12/27/16 06:01; Admin Dose 1 TAB; Start 12/23/16 at 16: 30 Acetaminophen/ Hydrocodone Bitart ([place] (10/325)) 2 tab Q4H PRN PO PAIN LEVEL 6-10 Last administered on 12/26/16 12:16; Admin Dose 2 TAB; Start 12/23/16 at 16 :30 Hydromorphone HCl (Dilaudid) 0.2 mg Q1H PRN IV BREAKTHROUGH PAIN; Start at 16:30 Ondansetron HCl (Zofran Inj) 4 mg Q6H PRN IV NAUSEA AND/OR VOMITING; Start 12/23 at 16:30 Bisacodyl (Dulcolax Supp) 10 mg DAILY PRN [place] CONSTIPATION; Start 12/23/16 at 16: 30 Docusate Sodium (Colace) 100 mg BID PO Last administered on 12/26/16 20:27; Admin Dose 100 MG; Start 12/23/16 at 21:00 Al Hydrox/Mg Hydrox/Simethicone (Mag-Al Plus) 15 ml Q6H PRN PO CONSTIPATION/ DYSPEPSIA Last administered on 12/26/16 12:17; Admin Dose 15 ML; Start 12/23/16 at 16:30 Acetaminophen (Tylenol Tab) 650 mg Q4H PRN PO COLLAZO OR TEMP GREATER THAN 101.3F; Start 12/23/16 at 16:30 Cyclobenzaprine HCl (Flexeril) 10 mg TID PRN PO MUSCLE SPASMS; Start 12/23/16 at 16:30 Phenol (Cepastat Lozenge) 1 lozenge PRN PRN [place] SORE THROAT; Start 12/23/16 at 16 :30 Diphenhydramine HCl (Benadryl) 25 mg Q6H PRN IV ITCHING; Start 12/23/16 at 16:30 Naloxone HCl (Narcan) 0.2 mg Q2M PRN IV RR 8 BREATHS/MIN OR LESS; Start at 16:30 Hydromorphone HCl (Dilaudid TUFTER OPERATOR) TUFTER OPERATOR to be started in PACU Q4PCA IV Last administered on 12/23/16 17:05; Admin Dose 6 MG; Start 12/23/16 at 16:30 Miscellaneous Information 1. Hold TUFTER OPERATOR at 1,000... TUFTER OPERATOR IV ; Start 12/23/16 at 16: 30 Ascorbic Acid (Vitamin C) 500 mg DAILY PO Last administered on 12/26/16 08:47 ; Admin Dose 500 MG; Start 12/24/16 at 09:00 Atorvastatin Calcium (Lipitor) 20 mg QHS PO Last administered on 12/26/16 20: 27; Admin Dose 20 MG; Start 12/23/16 at 21:00 Metoprolol Succinate (Toprol Xl) 100 mg DAILY PO Last administered on 08:48; Admin Dose 100 MG; Start 12/23/16 at 19:00 Ranitidine HCl (Zantac) 150 mg HS PO Last administered on 12/26/16 20:27; Admin Dose 150 MG; Start 12/23/16 at 21:00 Valsartan (Diovan) 320 mg DAILY PO Last administered on 12/26/16 08:47; Admin Dose 320 MG; Start 12/24/16 at 09:00 Diagnostic Test (Pha) (Accu-Chek) 1 ea 02 XX Last administered on 12/25/16 02: 07; Admin Dose 1 EA; Start 12/24/16 at 02:00 Miscellaneous Information 1 ea NOTE XX ; Start 12/23/16 at 19:00 Glucose (Glutose) 15 gm Q15M PRN PO DECREASED GLUCOSE; Start 12/23/16 at 19:00 Glucose (Glutose) 22.5 gm Q15M PRN PO DECREASED GLUCOSE; Start 12/23/16 at 19:00 Dextrose (D50w Syringe) 25 ml Q15M PRN IV DECREASED GLUCOSE; Start 12/23/16 at 19:00 Dextrose (D50w Syringe) 50 ml Q15M PRN IV DECREASED GLUCOSE; Start 12/23/16 at 19:00 Glucagon (Glucagen) 1 mg Q15M PRN IM DECREASED GLUCOSE; Start 12/23/16 at 19:00 Glucose (Glutose) 15 gm Q15M PRN BUCCAL DECREASED GLUCOSE; Start 12/23/16 at 19: 00 Pantoprazole (Protonix Tab) 40 mg DAILY@06 PO Last administered on 12/27/16 05 :51; Admin Dose 40 MG; Start 12/25/16 at 06:00 Magnesium Oxide (Mag-Ox 400) 400 mg BID PO Last administered on 12/26/16 20:27 ; Admin Dose 400 MG; Start 12/25/16 at 09:00 Tamsulosin HCl (Flomax) 0.4 mg BID PO Last administered on 12/26/16 20:27; Admin Dose 0.4 MG; Start 12/26/16 at 14:00 Bethanechol Chloride (Urecholine) 10 mg TID PO ; Start 12/26/16 at 21:00 VIJAYA HUNG MD Dec 27, 2016 07:58
[2016-12-27 09:05] VITALS: BP 135/70; RESP 18
--- NOTE | 2016-12-27 09:13 | CONS ---
Date/Time of Note Date/Time of Note DATE: 12/27/16 TIME: 09:07 Assessment/Plan Assessment/Plan Chief Complaint/Hosp Course 1. He is 4 days postop a lumbar sacral spine surgery. He had difficulty urinating yesterday and a urethral catheterization was done which showed more than 400 cc of residual urine in the bladder. He was seen by Dr Lala , urologist , and Flomax was increased to 0.8 mg a day and he was started on Urecholine . Patient could be discharged to home if urine residuals are < 350 . Await follow up by Dr Lala . 2. History of atrial flutter. The patient is now in sinus rhythm. Cardiology has been following the patient. 3. Hypertension controlled 4. Type 2 diabetes mellitus. Will restart diabetic medication. 5. Hypomagnesemia. We will replace magnesium. 6. Coronary artery disease the patient is not having any chest pain or shortness of breath Problems: Consultation Date/Type/Reason Admit Date/Time Dec 23, 2016 at 08:33 Type of Consultation: Urology Referring Provider: TRISHA MATAMOROS MD 24 HR Interval Summary Free Text/Dictation Patient is awake and alert . He is now getting Flomax 0.8 mg a day and Urecholine 10 mg TID . Awaiting bladder scan . Constitutional: no complaints Exam/Review of Systems Vital Signs Vitals Vital Signs Date Time Temp Pulse Resp B/P Pulse Ox O2 Delivery O2 Flow Rate FiO2 12/27/16 09:05 98.0 75 18 135/70 95 12/24/16 17:30 Room Air 12/24/16 06:00 2.0 Intake and Output 12/26/16 12/26/16 12/27/16 15:00 23:00 07:00 Intake Total 1600 ml 700 ml Output Total 550 ml 1200 ml Balance 1050 ml -500 ml Exam Constitutional: alert, oriented, well developed Respiratory: clear to auscultation, normal air movement Cardiovascular: regular rate and rhythm Gastrointestinal: non-tender, soft Musculoskeletal: nl extremities to inspection Results Result Diagram: 12/26/16 0441 12/26/16 0441 Results 24 hrs Laboratory Tests Test 12/26/16 12:59 12/26/16 17:54 12/26/16 20:25 Bedside Glucose 208 137 187 Medications Medications Current Medications Potassium Chloride/Sodium Chloride (1/2 NS + KCl 20 Meq) 1,000 ml @ 100 mls/hr Q10H IV Last administered on 12/25/16 15:05; Admin Dose 100 MLS/HR; Start at 16:26 Acetaminophen/ Hydrocodone Bitart ([place] (10/325)) 1 tab Q4H PRN PO PAIN LEVEL 1-5 Last administered on 12/27/16 06:01; Admin Dose 1 TAB; Start 12/23/16 at 16: 30 Acetaminophen/ Hydrocodone Bitart ([place] (10/325)) 2 tab Q4H PRN PO PAIN LEVEL 6-10 Last administered on 12/26/16 12:16; Admin Dose 2 TAB; Start 12/23/16 at 16 :30 Hydromorphone HCl (Dilaudid) 0.2 mg Q1H PRN IV BREAKTHROUGH PAIN; Start at 16:30 Ondansetron HCl (Zofran Inj) 4 mg Q6H PRN IV NAUSEA AND/OR VOMITING; Start 12/23 at 16:30 Bisacodyl (Dulcolax Supp) 10 mg DAILY PRN [place] CONSTIPATION; Start 12/23/16 at 16: 30 Docusate Sodium (Colace) 100 mg BID PO Last administered on 12/26/16 20:27; Admin Dose 100 MG; Start 12/23/16 at 21:00 Al Hydrox/Mg Hydrox/Simethicone (Mag-Al Plus) 15 ml Q6H PRN PO CONSTIPATION/ DYSPEPSIA Last administered on 12/26/16 12:17; Admin Dose 15 ML; Start 12/23/16 at 16:30 Acetaminophen (Tylenol Tab) 650 mg Q4H PRN PO COLLAZO OR TEMP GREATER THAN 101.3F; Start 12/23/16 at 16:30 Cyclobenzaprine HCl (Flexeril) 10 mg TID PRN PO MUSCLE SPASMS; Start 12/23/16 at 16:30 Phenol (Cepastat Lozenge) 1 lozenge PRN PRN [place] SORE THROAT; Start 12/23/16 at 16 :30 Diphenhydramine HCl (Benadryl) 25 mg Q6H PRN IV ITCHING; Start 12/23/16 at 16:30 Naloxone HCl (Narcan) 0.2 mg Q2M PRN IV RR 8 BREATHS/MIN OR LESS; Start at 16:30 Hydromorphone HCl (Dilaudid CHARGE MASTER ANALYST) CHARGE MASTER ANALYST to be started in PACU Q4PCA IV Last administered on 12/23/16 17:05; Admin Dose 6 MG; Start 12/23/16 at 16:30 Miscellaneous Information 1. Hold CHARGE MASTER ANALYST at 1,000... CHARGE MASTER ANALYST IV ; Start 12/23/16 at 16: 30 Ascorbic Acid (Vitamin C) 500 mg DAILY PO Last administered on 12/26/16 08:47 ; Admin Dose 500 MG; Start 12/24/16 at 09:00 Atorvastatin Calcium (Lipitor) 20 mg QHS PO Last administered on 12/26/16 20: 27; Admin Dose 20 MG; Start 12/23/16 at 21:00 Metoprolol Succinate (Toprol Xl) 100 mg DAILY PO Last administered on 08:48; Admin Dose 100 MG; Start 12/23/16 at 19:00 Ranitidine HCl (Zantac) 150 mg HS PO Last administered on 12/26/16 20:27; Admin Dose 150 MG; Start 12/23/16 at 21:00 Valsartan (Diovan) 320 mg DAILY PO Last administered on 12/26/16 08:47; Admin Dose 320 MG; Start 12/24/16 at 09:00 Diagnostic Test (Pha) (Accu-Chek) 1 ea 02 XX Last administered on 12/25/16 02: 07; Admin Dose 1 EA; Start 12/24/16 at 02:00 Miscellaneous Information 1 ea NOTE XX ; Start 12/23/16 at 19:00 Glucose (Glutose) 15 gm Q15M PRN PO DECREASED GLUCOSE; Start 12/23/16 at 19:00 Glucose (Glutose) 22.5 gm Q15M PRN PO DECREASED GLUCOSE; Start 12/23/16 at 19:00 Dextrose (D50w Syringe) 25 ml Q15M PRN IV DECREASED GLUCOSE; Start 12/23/16 at 19:00 Dextrose (D50w Syringe) 50 ml Q15M PRN IV DECREASED GLUCOSE; Start 12/23/16 at 19:00 Glucagon (Glucagen) 1 mg Q15M PRN IM DECREASED GLUCOSE; Start 12/23/16 at 19:00 Glucose (Glutose) 15 gm Q15M PRN BUCCAL DECREASED GLUCOSE; Start 12/23/16 at 19: 00 Pantoprazole (Protonix Tab) 40 mg DAILY@06 PO Last administered on 12/27/16 05 :51; Admin Dose 40 MG; Start 12/25/16 at 06:00 Magnesium Oxide (Mag-Ox 400) 400 mg BID PO Last administered on 12/26/16 20:27 ; Admin Dose 400 MG; Start 12/25/16 at 09:00 Tamsulosin HCl (Flomax) 0.4 mg BID PO Last administered on 12/26/16 20:27; Admin Dose 0.4 MG; Start 12/26/16 at 14:00 Bethanechol Chloride (Urecholine) 10 mg TID PO ; Start 12/26/16 at 21:00 TRISHA MATAMOROS MD Dec 27, 2016 09:13
[2016-12-27] MEDS: DOCUSATE SODIUM 100 MG CAP PO SCH ×2 (09:31→21:06)
[2016-12-27] MEDS: TAMSULOSIN (SR) 0.4 MG CAP PO SCH ×2 (09:31→21:06)
[2016-12-27] MEDS: VALSARTAN 160 MG TAB PO SCH (09:32)
[2016-12-27] MEDS: MAGNESIUM OXIDE 400 MG TAB PO SCH ×2 (09:32→21:06)
[2016-12-27] MEDS: metFORMIN 500 MG TAB PO SCH ×2 (09:32→19:32)
[2016-12-27] MEDS: AL HYDROX/MG HYDROX/SIMETH 30 ML CUP PO PRN (09:32)
[2016-12-27] MEDS: ASCORBIC ACID 500 MG TAB PO SCH (09:32)
[2016-12-27] MEDS: BETHANECHOL 10 MG TAB PO SCH ×2 (09:33→13:16)
[2016-12-27] MEDS: METOPROLOL (XL) 100 MG TAB PO SCH (09:33)
[2016-12-27] MEDS: INSULIN ASPART [NOVOLOG] 3 ML PEN SC SCH ×4 (09:43→21:00)
[2016-12-27] MEDS: HYDROCODONE/APAP (10/325) TAB PO PRN (10:20)
[2016-12-27 14:00] VITALS: BP 157/70; RESP 18
[2016-12-27 19:10] VITALS: BP 134/62; RESP 18
--- NOTE | 2016-12-27 19:23 | PN ---
Date/Time of Note Date/Time of Note DATE: 12/27/16 TIME: 19:17 Assessment/Plan VTE Prophylaxis VTE Prophylaxis Intervention: ambulation Lines/Catheters IV [facility] Saline Lock Urinary Cath still in place: No Assessment/Plan Chief Complaint/Hosp Course This patient does have urinary retention and this may have been chronic as he was having urgency, urgency incontinence and also wetting his underwear and pajama at night for over 1 year. He has a high postvoid residual and require straight catheterization. PT VOIDED 250ML. PVR 420ML. STRAIGHT CATH EMPTIED 300ML. I will increase his Urecholine to 25 mg 3 times a day continue to monitor his postvoid residual and do straight cath on him for a postvoid residual of 300 mL or if he does not urinate and the bladder volume is over 500 mL. Problems: Subjective 24 Hr Interval Summary Constitutional: no complaints Eyes: no complaints ENT: no complaints Respiratory: no complaints Cardiovascular: no complaints Gastrointestinal: constipation Genitourinary: other (Incomplete bladder emptying) Musculoskeletal: no complaints Skin: no complaints Neurologic: no complaints Endocrine: no complaints Psychological: no complaints Exam/Review of Systems Vital Signs Vitals Vital Signs Date Time Temp Pulse Resp B/P Pulse Ox O2 Delivery O2 Flow Rate FiO2 12/27/16 14:00 97.6 64 18 157/70 96 12/24/16 17:30 Room Air 12/24/16 06:00 2.0 Intake and Output 12/26/16 12/26/16 12/27/16 15:00 23:00 07:00 Intake Total 1600 ml 700 ml Output Total 550 ml 1200 ml Balance 1050 ml -500 ml Exam Constitutional: alert, oriented Psych: no complaints Head: normocephalic Eyes: nl conjunctiva ENMT: nl external ears & nose Neck: supple Respiratory: normal air movement Cardiovascular: nl pulses Gastrointestinal: soft Genitourinary - Male: nl penis, nl scrotum, No CVA tenderness Musculoskeletal: nl extremities to inspection Extremities: No calf tenderness, No edema Skin: nl turgor Results Result Diagram: 12/26/16 0441 12/26/16 044 Results 24 hrs Laboratory Tests Test 12/26/16 20:25 12/27/16 09:06 12/27/16 12:50 12/27/16 17:26 Bedside Glucose 187 155 200 133 Medications Medications Current Medications Potassium Chloride/Sodium Chloride (1/2 NS + KCl 20 Meq) 1,000 ml @ 100 mls/hr Q10H IV Last administered on 12/25/16 15:05; Admin Dose 100 MLS/HR; Start at 16:26 Acetaminophen/ Hydrocodone Bitart ([place] (10/325)) 1 tab Q4H PRN PO PAIN LEVEL 1-5 Last administered on 12/27/16 06:01; Admin Dose 1 TAB; Start 12/23/16 at 16: 30 Acetaminophen/ Hydrocodone Bitart ([place] (10/325)) 2 tab Q4H PRN PO PAIN LEVEL 6-10 Last administered on 12/27/16 10:20; Admin Dose 2 TAB; Start 12/23/16 at 16 :30 Hydromorphone HCl (Dilaudid) 0.2 mg Q1H PRN IV BREAKTHROUGH PAIN; Start at 16:30 Ondansetron HCl (Zofran Inj) 4 mg Q6H PRN IV NAUSEA AND/OR VOMITING; Start 12/23 at 16:30 Bisacodyl (Dulcolax Supp) 10 mg DAILY PRN [place] CONSTIPATION; Start 12/23/16 at 16: 30 Docusate Sodium (Colace) 100 mg BID PO Last administered on 12/27/16 09:31; Admin Dose 100 MG; Start 12/23/16 at 21:00 Al Hydrox/Mg Hydrox/Simethicone (Mag-Al Plus) 15 ml Q6H PRN PO CONSTIPATION/ DYSPEPSIA Last administered on 12/27/16 09:32; Admin Dose 15 ML; Start 12/23/16 at 16:30 Acetaminophen (Tylenol Tab) 650 mg Q4H PRN PO COLLAZO OR TEMP GREATER THAN 101.3F; Start 12/23/16 at 16:30 Cyclobenzaprine HCl (Flexeril) 10 mg TID PRN PO MUSCLE SPASMS; Start 12/23/16 at 16:30 Phenol (Cepastat Lozenge) 1 lozenge PRN PRN [place] SORE THROAT; Start 12/23/16 at 16 :30 Diphenhydramine HCl (Benadryl) 25 mg Q6H PRN IV ITCHING; Start 12/23/16 at 16:30 Naloxone HCl (Narcan) 0.2 mg Q2M PRN IV RR 8 BREATHS/MIN OR LESS; Start at 16:30 Hydromorphone HCl (Dilaudid LOG SAWYER) LOG SAWYER to be started in PACU Q4PCA IV Last administered on 12/23/16 17:05; Admin Dose 6 MG; Start 12/23/16 at 16:30 Miscellaneous Information 1. Hold LOG SAWYER at 1,000... LOG SAWYER IV ; Start 12/23/16 at 16: 30 Ascorbic Acid (Vitamin C) 500 mg DAILY PO Last administered on 12/27/16 09:32 ; Admin Dose 500 MG; Start 12/24/16 at 09:00 Atorvastatin Calcium (Lipitor) 20 mg QHS PO Last administered on 12/26/16 20: 27; Admin Dose 20 MG; Start 12/23/16 at 21:00 Metoprolol Succinate (Toprol Xl) 100 mg DAILY PO Last administered on 09:33; Admin Dose 100 MG; Start 12/23/16 at 19:00 Ranitidine HCl (Zantac) 150 mg HS PO Last administered on 12/26/16 20:27; Admin Dose 150 MG; Start 12/23/16 at 21:00 Valsartan (Diovan) 320 mg DAILY PO Last administered on 12/27/16 09:32; Admin Dose 320 MG; Start 12/24/16 at 09:00 Diagnostic Test (Pha) (Accu-Chek) 1 ea 02 XX Last administered on 12/25/16 02: 07; Admin Dose 1 EA; Start 12/24/16 at 02:00 Miscellaneous Information 1 ea NOTE XX ; Start 12/23/16 at 19:00 Glucose (Glutose) 15 gm Q15M PRN PO DECREASED GLUCOSE; Start 12/23/16 at 19:00 Glucose (Glutose) 22.5 gm Q15M PRN PO DECREASED GLUCOSE; Start 12/23/16 at 19:00 Dextrose (D50w Syringe) 25 ml Q15M PRN IV DECREASED GLUCOSE; Start 12/23/16 at 19:00 Dextrose (D50w Syringe) 50 ml Q15M PRN IV DECREASED GLUCOSE; Start 12/23/16 at 19:00 Glucagon (Glucagen) 1 mg Q15M PRN IM DECREASED GLUCOSE; Start 12/23/16 at 19:00 Glucose (Glutose) 15 gm Q15M PRN BUCCAL DECREASED GLUCOSE; Start 12/23/16 at 19: 00 Pantoprazole (Protonix Tab) 40 mg DAILY@06 PO Last administered on 12/27/16 05 :51; Admin Dose 40 MG; Start 12/25/16 at 06:00 Magnesium Oxide (Mag-Ox 400) 400 mg BID PO Last administered on 12/27/16 09:32 ; Admin Dose 400 MG; Start 12/25/16 at 09:00 Tamsulosin HCl (Flomax) 0.4 mg BID PO Last administered on 12/27/16 09:31; Admin Dose 0.4 MG; Start 12/26/16 at 14:00 Bethanechol Chloride (Urecholine) 25 mg TID PO ; Start 12/27/16 at 21:00; Status UNV WINNIE COLLINS MD Dec 27, 2016 19:23
[2016-12-27] MEDS: ATORVASTATIN 20 MG TAB PO SCH (21:06)
[2016-12-27] MEDS: BETHANECHOL 25 MG TAB PO SCH (21:06)
[2016-12-27] MEDS: RANITIDINE 150 MG TAB PO SCH (21:06)
[2016-12-28 02:00] VITALS: BP 145/67; RESP 18
[2016-12-28 02:11] VITALS: BP 130/80; PULSE 68; RESP 18
[2016-12-28] MEDS: PANTOPRAZOLE (EC) 40 MG TAB PO SCH (05:19)
[2016-12-28] MEDS: 1/2 NS + KCL 20 MEQ 1,000 ML IV SCH ×2 (05:19→16:12)
[2016-12-28 07:00] VITALS: BP 146/66; RESP 18
[2016-12-28] MEDS: ASCORBIC ACID 500 MG TAB PO SCH (08:44)
[2016-12-28] MEDS: BETHANECHOL 25 MG TAB PO SCH ×3 (08:44→20:51)
[2016-12-28] MEDS: metFORMIN 500 MG TAB PO SCH ×2 (08:44→17:55)
[2016-12-28] MEDS: DOCUSATE SODIUM 100 MG CAP PO SCH ×2 (08:44→20:51)
[2016-12-28] MEDS: MAGNESIUM OXIDE 400 MG TAB PO SCH ×2 (08:44→20:52)
[2016-12-28] MEDS: VALSARTAN 160 MG TAB PO SCH (08:45)
[2016-12-28] MEDS: METOPROLOL (XL) 100 MG TAB PO SCH (08:45)
[2016-12-28] MEDS: TAMSULOSIN (SR) 0.4 MG CAP PO SCH ×2 (08:47→21:00)
[2016-12-28] MEDS: HYDROCODONE/APAP (10/325) TAB PO PRN ×2 (08:53→12:34)
[2016-12-28] MEDS: INSULIN ASPART [NOVOLOG] 3 ML PEN SC SCH ×4 (08:56→20:59)
--- NOTE | 2016-12-28 10:10 | PN ---
Date/Time of Note Date/Time of Note DATE: 12/28/16 TIME: 10:03 Assessment/Plan VTE Prophylaxis VTE Prophylaxis Intervention: ambulation Lines/Catheters IV [facility]from [facility] Saline Lock Urinary Cath still in place: No Assessment/Plan Chief Complaint/Hosp Course This patient is voiding better,no urinary retention but high PVR. he was having urgency, urgency incontinence and also wetting his underwear and pajama at night for over 1 year. he may be discharged today on [id number] tid and tamsulosin 0.4mg bid. Follow up in the office in one month Problems: Subjective 24 Hr Interval Summary Constitutional: no complaints Eyes: no complaints ENT: no complaints Respiratory: no complaints Cardiovascular: no complaints Gastrointestinal: no complaints Genitourinary: other (voiding better) Musculoskeletal: back pain (less), no complaints Skin: no complaints Neurologic: no complaints Endocrine: no complaints Lymphatic: no complaints Psychological: no complaints Immunologic: no complaints Exam/Review of Systems Vital Signs Vitals Vital Signs Date Time Temp Pulse Resp B/P Pulse Ox O2 Delivery O2 Flow Rate FiO2 12/28/16 07:00 98.9 65 18 146/66 97 12/28/16 02:11 Room Air Intake and Output 12/27/16 12/27/16 12/28/16 15:00 23:00 07:00 Intake Total 600 ml 1100 ml Output Total 1640 ml 700 ml Balance -1040 ml 400 ml Exam Constitutional: alert, oriented Psych: no complaints Head: normocephalic Eyes: nl conjunctiva ENMT: nl external ears & nose Neck: supple Respiratory: normal air movement Cardiovascular: nl pulses Gastrointestinal: soft Genitourinary - Male: other (voiding better,PVR 159ml -150ml therefore no retention) Musculoskeletal: nl extremities to inspection Extremities: No calf tenderness Skin: nl turgor Results Result Diagram: 12/26/1644012/26/16440 Results 24 hrs Laboratory Tests Test 12/27/16 12:50 12/27/16 17:26 12/27/16 20:10 12/27/16 21:09 Bedside Glucose 200 133 134 Prostate Specific Antigen 1.8 Test 12/28/16 08:42 Bedside Glucose 183 Medications Medications Current Medications Potassium Chloride/Sodium Chloride (1/2 NS + KCl 20 Meq) 1,000 ml @ 100 mls/hr Q10H IV Last administered on 12/25/16 15:05; Admin Dose 100 MLS/HR; Start at 16:26 Acetaminophen/ Hydrocodone Bitart ([place] (10/325)) 1 tab Q4H PRN PO PAIN LEVEL 1-5 Last administered on 12/27/16 06:01; Admin Dose 1 TAB; Start 12/23/16 at 16: 30 Acetaminophen/ Hydrocodone Bitart ([place] (10/325)) 2 tab Q4H PRN PO PAIN LEVEL 6-10 Last administered on 12/28/16 08:53; Admin Dose 2 TAB; Start 12/23/16 at 16 :30 Hydromorphone HCl (Dilaudid) 0.2 mg Q1H PRN IV BREAKTHROUGH PAIN; Start at 16:30 Ondansetron HCl (Zofran Inj) 4 mg Q6H PRN IV NAUSEA AND/OR VOMITING; Start 12/23 at 16:30 Bisacodyl (Dulcolax Supp) 10 mg DAILY PRN [place] CONSTIPATION Last administered on 12/28/16 09:56; Admin Dose 10 MG; Start 12/23/16 at 16:30 Docusate Sodium (Colace) 100 mg BID PO Last administered on 12/28/16 08:44; Admin Dose 100 MG; Start 12/23/16 at 21:00 Al Hydrox/Mg Hydrox/Simethicone (Mag-Al Plus) 15 ml Q6H PRN PO CONSTIPATION/ DYSPEPSIA Last administered on 12/27/16 09:32; Admin Dose 15 ML; Start 12/23/16 at 16:30 Acetaminophen (Tylenol Tab) 650 mg Q4H PRN PO COLLAZO OR TEMP GREATER THAN 101.3F; Start 12/23/16 at 16:30 Cyclobenzaprine HCl (Flexeril) 10 mg TID PRN PO MUSCLE SPASMS; Start 12/23/16 at 16:30 Phenol (Cepastat Lozenge) 1 lozenge PRN PRN [place] SORE THROAT; Start 12/23/16 at 16 :30 Diphenhydramine HCl (Benadryl) 25 mg Q6H PRN IV ITCHING; Start 12/23/16 at 16:30 Naloxone HCl (Narcan) 0.2 mg Q2M PRN IV RR 8 BREATHS/MIN OR LESS; Start at 16:30 Hydromorphone HCl (Dilaudid TANK WASHER) TANK WASHER to be started in PACU Q4PCA IV Last administered on 12/23/16 17:05; Admin Dose 6 MG; Start 12/23/16 at 16:30 Miscellaneous Information 1. Hold TANK WASHER at 1,000... TANK WASHER IV ; Start 12/23/16 at 16: 30 Ascorbic Acid (Vitamin C) 500 mg DAILY PO Last administered on 12/28/16 08:44 ; Admin Dose 500 MG; Start 12/24/16 at 09:00 Atorvastatin Calcium (Lipitor) 20 mg QHS PO Last administered on 12/27/16 21: 06; Admin Dose 20 MG; Start 12/23/16 at 21:00 Metoprolol Succinate (Toprol Xl) 100 mg DAILY PO Last administered on 08:45; Admin Dose 100 MG; Start 12/23/16 at 19:00 Ranitidine HCl (Zantac) 150 mg HS PO Last administered on 12/27/16 21:06; Admin Dose 150 MG; Start 12/23/16 at 21:00 Valsartan (Diovan) 320 mg DAILY PO Last administered on 12/28/16 08:45; Admin Dose 320 MG; Start 12/24/16 at 09:00 Diagnostic Test (Pha) (Accu-Chek) 1 ea 02 XX Last administered on 12/25/16 02: 07; Admin Dose 1 EA; Start 12/24/16 at 02:00 Miscellaneous Information 1 ea NOTE XX ; Start 12/23/16 at 19:00 Glucose (Glutose) 15 gm Q15M PRN PO DECREASED GLUCOSE; Start 12/23/16 at 19:00 Glucose (Glutose) 22.5 gm Q15M PRN PO DECREASED GLUCOSE; Start 12/23/16 at 19:00 Dextrose (D50w Syringe) 25 ml Q15M PRN IV DECREASED GLUCOSE; Start 12/23/16 at 19:00 Dextrose (D50w Syringe) 50 ml Q15M PRN IV DECREASED GLUCOSE; Start 12/23/16 at 19:00 Glucagon (Glucagen) 1 mg Q15M PRN IM DECREASED GLUCOSE; Start 12/23/16 at 19:00 Glucose (Glutose) 15 gm Q15M PRN BUCCAL DECREASED GLUCOSE; Start 12/23/16 at 19: 00 Pantoprazole (Protonix Tab) 40 mg DAILY@06 PO Last administered on 12/28/16 05 :19; Admin Dose 40 MG; Start 12/25/16 at 06:00 Magnesium Oxide (Mag-Ox 400) 400 mg BID PO Last administered on 12/28/16 08:44 ; Admin Dose 400 MG; Start 12/25/16 at 09:00 Tamsulosin HCl (Flomax) 0.4 mg BID PO Last administered on 12/28/16 08:47; Admin Dose 0.4 MG; Start 12/26/16 at 14:00 Bethanechol Chloride (Urecholine) 25 mg TID PO Last administered on 12/28/16 08:44; Admin Dose 25 MG; Start 12/27/16 at 21:00 WINNIE COLLINS MD Dec 28, 2016 10:10
--- NOTE | 2016-12-28 10:13 | CONS ---
Date/Time of Note Date/Time of Note DATE: 12/28/16 TIME: 10:12 Assessment/Plan Assessment/Plan Chief Complaint/Hosp Course 1) paroxysmal atrial flutter 2) CAD 3) CABG 4) s/p spinal surgery 5) urinary retention Problems: Additional Assessment/Plan 1) continue current meds 2) coumadin once ok w surgery and if no urinary procedures are planned Consultation Date/Type/Reason Admit Date/Time Dec 23, 2016 at 08:33 Initial Consult Date 12/26/16 Type of Consultation: cv Referring Provider: TRISHA MATAMOROS MD 24 HR Interval Summary Free Text/Dictation ambulating, no chest pain, no sob, no palpitations, still has urinary retention Detailed Summary Respiratory: no complaints Cardiovascular: no complaints Gastrointestinal: no complaints Genitourinary: no complaints Musculoskeletal: no complaints Neurologic: no complaints Endocrine: no complaints Exam/Review of Systems Vital Signs Vitals Vital Signs Date Time Temp Pulse Resp B/P Pulse Ox O2 Delivery O2 Flow Rate FiO2 12/28/16 07:00 98.9 65 18 146/66 97 12/28/16 02:11 Room Air Intake and Output 12/27/16 12/27/16 12/28/16 15:00 23:00 07:00 Intake Total 600 ml 1100 ml Output Total 1640 ml 700 ml Balance -1040 ml 400 ml Exam Constitutional: alert, oriented Head: atraumatic, normocephalic Neck: supple Respiratory: clear to auscultation Cardiovascular: regular rate and rhythm Gastrointestinal: soft Musculoskeletal: nl extremities to inspection Results Result Diagram: 12/26/16 0441 12/26/16 0441 Results 24 hrs Laboratory Tests Test 12/27/16 12:50 12/27/16 17:26 12/27/16 20:10 12/27/16 21:09 Bedside Glucose 200 133 134 Prostate Specific Antigen 1.8 Test 12/28/16 08:42 Bedside Glucose 183 Medications Medications Current Medications Potassium Chloride/Sodium Chloride (1/2 NS + KCl 20 Meq) 1,000 ml @ 100 mls/hr Q10H IV Last administered on 12/25/16t 15:05; Admin Dose 100 MLS/HR; Start at 16:26 Acetaminophen/ Hydrocodone Bitart ([place] (10/325)) 1 tab Q4H PRN PO PAIN LEVEL 1-5 Last administered on 12/27/16 06:01; Admin Dose 1 TAB; Start 12/23/16 at 16: 30 Acetaminophen/ Hydrocodone Bitart ([place] (10/325)) 2 tab Q4H PRN PO PAIN LEVEL 6-10 Last administered on 12/28/16 08:53; Admin Dose 2 TAB; Start 12/23/16 at 16 :30 Hydromorphone HCl (Dilaudid) 0.2 mg Q1H PRN IV BREAKTHROUGH PAIN; Start at 16:30 Ondansetron HCl (Zofran Inj) 4 mg Q6H PRN IV NAUSEA AND/OR VOMITING; Start 12/23 at 16:30 Bisacodyl (Dulcolax Supp) 10 mg DAILY PRN [place] CONSTIPATION Last administered on 12/28/16 09:56; Admin Dose 10 MG; Start 12/23/16 at 16:30 Docusate Sodium (Colace) 100 mg BID PO Last administered on 12/28/16 08:44; Admin Dose 100 MG; Start 12/23/16 at 21:00 Al Hydrox/Mg Hydrox/Simethicone (Mag-Al Plus) 15 ml Q6H PRN PO CONSTIPATION/ DYSPEPSIA Last administered on 12/27/16 09:32; Admin Dose 15 ML; Start 12/23/16 at 16:30 Acetaminophen (Tylenol Tab) 650 mg Q4H PRN PO COLLAZO OR TEMP GREATER THAN 101.3F; Start 12/23/16 at 16:30 Cyclobenzaprine HCl (Flexeril) 10 mg TID PRN PO MUSCLE SPASMS; Start 12/23/16 at 16:30 Phenol (Cepastat Lozenge) 1 lozenge PRN PRN MT SORE THROAT; Start 12/23/16 at 16 :30 Diphenhydramine HCl (Benadryl) 25 mg Q6H PRN IV ITCHING; Start 12/23/16 at 16:30 Naloxone HCl (Narcan) 0.2 mg Q2M PRN IV RR 8 BREATHS/MIN OR LESS; Start at 16:30 Hydromorphone HCl (Dilaudid REMOTE BROADCAST TECHNICIAN) REMOTE BROADCAST TECHNICIAN to be started in PACU Q4PCA IV Last administered on 12/23/16 17:05; Admin Dose 6 MG; Start 12/23/16 at 16:30 Miscellaneous Information 1. Hold REMOTE BROADCAST TECHNICIAN at 1,000... REMOTE BROADCAST TECHNICIAN IV ; Start 12/23/16 at 16: 30 Ascorbic Acid (Vitamin C) 500 mg DAILY PO Last administered on 12/28/16 08:44 ; Admin Dose 500 MG; Start 12/24/16 at 09:00 Atorvastatin Calcium (Lipitor) 20 mg QHS PO Last administered on 12/27/16 21: 06; Admin Dose 20 MG; Start 12/23/16 at 21:00 Metoprolol Succinate (Toprol Xl) 100 mg DAILY PO Last administered on 08:45; Admin Dose 100 MG; Start 12/23/16 at 19:00 Ranitidine HCl (Zantac) 150 mg HS PO Last administered on 12/27/16 21:06; Admin Dose 150 MG; Start 12/23/16 at 21:00 Valsartan (Diovan) 320 mg DAILY PO Last administered on 12/28/16 08:45; Admin Dose 320 MG; Start 12/24/16 at 09:00 Diagnostic Test (Pha) (Accu-Chek) 1 ea 02 XX Last administered on 12/25/16 02: 07; Admin Dose 1 EA; Start 12/24/16 at 02:00 Miscellaneous Information 1 ea NOTE XX ; Start 12/23/16 at 19:00 Glucose (Glutose) 15 gm Q15M PRN PO DECREASED GLUCOSE; Start 12/23/16 at 19:00 Glucose (Glutose) 22.5 gm Q15M PRN PO DECREASED GLUCOSE; Start 12/23/16 at 19:00 Dextrose (D50w Syringe) 25 ml Q15M PRN IV DECREASED GLUCOSE; Start 12/23/16 at 19:00 Dextrose (D50w Syringe) 50 ml Q15M PRN IV DECREASED GLUCOSE; Start 12/23/16 at 19:00 Glucagon (Glucagen) 1 mg Q15M PRN IM DECREASED GLUCOSE; Start 12/23/16 at 19:00 Glucose (Glutose) 15 gm Q15M PRN BUCCAL DECREASED GLUCOSE; Start 12/23/16 at 19: 00 Pantoprazole (Protonix Tab) 40 mg DAILY@06 PO Last administered on 12/28/16 05 :19; Admin Dose 40 MG; Start 12/25/16 at 06:00 Magnesium Oxide (Mag-Ox 400) 400 mg BID PO Last administered on 12/28/16 08:44 ; Admin Dose 400 MG; Start 12/25/16 at 09:00 Tamsulosin HCl (Flomax) 0.4 mg BID PO Last administered on 12/28/16 08:47; Admin Dose 0.4 MG; Start 12/26/16 at 14:00 Bethanechol Chloride (Urecholine) 25 mg TID PO Last administered on 12/28/16 08:44; Admin Dose 25 MG; Start 12/27/16 at 21:00 ROBERT ANDERSON MD Dec 28, 2016 10:13
--- NOTE | 2016-12-28 12:58 | CONS ---
Date/Time of Note Date/Time of Note DATE: 12/28/16 TIME: 12:57 Consult Date/Type/Reason Admit Date/Time Dec 23, 2016 at 08:33 Initial Consult Date 12/26/16 Type of Consultation: cv Ordering Provider: TRISHA MATAMOROS MD Objective Vital Signs Date Time Temp Pulse Resp B/P Pulse Ox O2 Delivery O2 Flow Rate FiO2 12/28/16 07:00 98.9 65 18 146/66 97 12/28/16 02:11 Room Air Intake and Output 12/27/16 12/27/16 12/28/16 15:00 23:00 07:00 Intake Total 600 ml 1100 ml Output Total 1640 ml 700 ml Balance -1040 ml 400 ml Exam NC AT NAD RRR CTAB BLE no edema Results/Medications Result Diagram: 12/26/1644012/26/16440 Results 24 hrs Laboratory Tests Test 12/27/16 17:26 12/27/16 20:10 12/27/16 21:09 12/28/16 08:42 Bedside Glucose 133 134 183 Prostate Specific Antigen 1.8 Test 12/28/16 12:30 Bedside Glucose 185 Medications Current Medications Potassium Chloride/Sodium Chloride (1/2 NS + KCl 20 Meq) 1,000 ml @ 100 mls/hr Q10H IV Last administered on 12/25/16 15:05; Admin Dose 100 MLS/HR; Start at 16:26 Acetaminophen/ Hydrocodone Bitart ([place] (10/325)) 1 tab Q4H PRN PO PAIN LEVEL 1-5 Last administered on 12/27/16 06:01; Admin Dose 1 TAB; Start 12/23/16 at 16: 30 Acetaminophen/ Hydrocodone Bitart ([place] (10/325)) 2 tab Q4H PRN PO PAIN LEVEL 6-10 Last administered on 12/28/16 12:34; Admin Dose 2 TAB; Start 12/23/16 at 16 :30 Hydromorphone HCl (Dilaudid) 0.2 mg Q1H PRN IV BREAKTHROUGH PAIN; Start at 16:30 Ondansetron HCl (Zofran Inj) 4 mg Q6H PRN IV NAUSEA AND/OR VOMITING; Start 12/23 at 16:30 Bisacodyl (Dulcolax Supp) 10 mg DAILY PRN [place] CONSTIPATION Last administered on 12/28/16 09:56; Admin Dose 10 MG; Start 12/23/16 at 16:30 Docusate Sodium (Colace) 100 mg BID PO Last administered on 12/28/16 08:44; Admin Dose 100 MG; Start 12/23/16 at 21:00 Al Hydrox/Mg Hydrox/Simethicone (Mag-Al Plus) 15 ml Q6H PRN PO CONSTIPATION/ DYSPEPSIA Last administered on 12/27/16 09:32; Admin Dose 15 ML; Start 12/23/16 at 16:30 Acetaminophen (Tylenol Tab) 650 mg Q4H PRN PO COLLAZO OR TEMP GREATER THAN 101.3F; Start 12/23/16 at 16:30 Cyclobenzaprine HCl (Flexeril) 10 mg TID PRN PO MUSCLE SPASMS; Start 12/23/16 at 16:30 Phenol (Cepastat Lozenge) 1 lozenge PRN PRN [place] SORE THROAT; Start 12/23/16 at 16 :30 Diphenhydramine HCl (Benadryl) 25 mg Q6H PRN IV ITCHING; Start 12/23/16 at 16:30 Naloxone HCl (Narcan) 0.2 mg Q2M PRN IV RR 8 BREATHS/MIN OR LESS; Start at 16:30 Hydromorphone HCl (Dilaudid DEMO EVENT SPECIALIST) DEMO EVENT SPECIALIST to be started in PACU Q4PCA IV Last administered on 12/23/16 17:05; Admin Dose 6 MG; Start 12/23/16 at 16:30 Miscellaneous Information 1. Hold DEMO EVENT SPECIALIST at 1,000... DEMO EVENT SPECIALIST IV ; Start 12/23/16 at 16: 30 Ascorbic Acid (Vitamin C) 500 mg DAILY PO Last administered on 12/28/16 08:44 ; Admin Dose 500 MG; Start 12/24/16 at 09:00 Atorvastatin Calcium (Lipitor) 20 mg QHS PO Last administered on 12/27/16 21: 06; Admin Dose 20 MG; Start 12/23/16 at 21:00 Metoprolol Succinate (Toprol Xl) 100 mg DAILY PO Last administered on 08:45; Admin Dose 100 MG; Start 12/23/16 at 19:00 Ranitidine HCl (Zantac) 150 mg HS PO Last administered on 12/27/16 21:06; Admin Dose 150 MG; Start 12/23/16 at 21:00 Valsartan (Diovan) 320 mg DAILY PO Last administered on 12/28/16 08:45; Admin Dose 320 MG; Start 12/24/16 at 09:00 Diagnostic Test (Pha) (Accu-Chek) 1 ea 02 XX Last administered on 12/25/16 02: 07; Admin Dose 1 EA; Start 12/24/16 at 02:00 Miscellaneous Information 1 ea NOTE XX ; Start 12/23/16 at 19:00 Glucose (Glutose) 15 gm Q15M PRN PO DECREASED GLUCOSE; Start 12/23/16 at 19:00 Glucose (Glutose) 22.5 gm Q15M PRN PO DECREASED GLUCOSE; Start 12/23/16 at 19:00 Dextrose (D50w Syringe) 25 ml Q15M PRN IV DECREASED GLUCOSE; Start 12/23/16 at 19:00 Dextrose (D50w Syringe) 50 ml Q15M PRN IV DECREASED GLUCOSE; Start 12/23/16 at 19:00 Glucagon (Glucagen) 1 mg Q15M PRN IM DECREASED GLUCOSE; Start 12/23/16 at 19:00 Glucose (Glutose) 15 gm Q15M PRN BUCCAL DECREASED GLUCOSE; Start 12/23/16 at 19: 00 Pantoprazole (Protonix Tab) 40 mg DAILY@06 PO Last administered on 12/28/16 05 :19; Admin Dose 40 MG; Start 12/25/16 at 06:00 Magnesium Oxide (Mag-Ox 400) 400 mg BID PO Last administered on 12/28/16 08:44 ; Admin Dose 400 MG; Start 12/25/16 at 09:00 Tamsulosin HCl (Flomax) 0.4 mg BID PO Last administered on 12/28/16 08:47; Admin Dose 0.4 MG; Start 12/26/16 at 14:00 Bethanechol Chloride (Urecholine) 25 mg TID PO Last administered on 12/28/16 12:33; Admin Dose 25 MG; Start 12/27/16 at 21:00 Assessment/Plan Chief Complaint/Hosp Course 1. He is 5 days postop a lumbar sacral spine surgery. He had difficulty urinating yesterday and a urethral catheterization was done which showed more than 400 cc of residual urine in the bladder. He was seen by Dr Lala , urologist , and Flomax was increased to 0.8 mg a day and he was started on Urecholine . Patient could be discharged to home if urine residuals are < 350 . Await follow up by Dr Lala . 2. History of atrial flutter. The patient is now in sinus rhythm. Cardiology has been following the patient. 3. Hypertension controlled 4. Type 2 diabetes mellitus. Will restart diabetic medication. 5. Hypomagnesemia. We will replace magnesium. 6. Coronary artery disease the patient is not having any chest pain or shortness of breath No longer having retention, cleared by urology. stable for discharge from Medicine perspective Coverage for Dr. Matamoros Problems: ROSA HOLDEN MD Dec 28, 2016 12:58
[2016-12-28 14:00] VITALS: BP 148/65; RESP 20
[2016-12-28 20:50] VITALS: BP 120/60; PULSE 58; RESP 18
[2016-12-28] MEDS: ATORVASTATIN 20 MG TAB PO SCH (20:51)
[2016-12-28] MEDS: RANITIDINE 150 MG TAB PO SCH (20:51)
[2016-12-29] MEDS: 1/2 NS + KCL 20 MEQ 1,000 ML IV SCH (02:26)
[2016-12-29 02:30] VITALS: BP 138/70; RESP 18
[2016-12-29] MEDS: HYDROCODONE/APAP (10/325) TAB PO PRN ×2 (02:42→09:06)
[2016-12-29] MEDS: ACCU-CHEK XX SCH (02:42)
[2016-12-29] MEDS: PANTOPRAZOLE (EC) 40 MG TAB PO SCH (05:42)
[2016-12-29 07:39] VITALS: BP 128/59; RESP 20
--- NOTE | 2016-12-29 08:29 | CONS ---
Date/Time of Note Date/Time of Note DATE: 12/29/16 TIME: 08:27 Consultation Date/Type/Reason Admit Date/Time Dec 23, 2016 at 08:33 Initial Consult Date 12/26/16 Type of Consultation: cv Reason for Consultation Paroxsmal atrial flutter and CAD Referring Provider: TRISHA MATAMOROS MD 24 HR Interval Summary Free Text/Dictation Assessment/Plan Chief Complaint/Hosp Course 1) paroxysmal atrial flutter 2) CAD 3) CABG 4) s/p spinal surgery 5) urinary retention PLan 1) continue current meds 2) coumadin once ok w surgery Constitutional: no complaints Exam/Review of Systems Vital Signs Vitals Vital Signs Date Time Temp Pulse Resp B/P Pulse Ox O2 Delivery O2 Flow Rate FiO2 12/29/16 07:39 98.4 59 20 128/59 98 12/28/16 20:50 Room Air Intake and Output 12/28/16 12/28/16 12/29/16 15:00 23:00 07:00 Intake Total 780 ml 1200 ml Output Total 450 ml 1100 ml Balance 330 ml 100 ml Exam Constitutional: alert, oriented Psych: no complaints Respiratory: clear to auscultation Cardiovascular: regular rate and rhythm Results Result Diagram: 12/26/16 0441 12/26/16 0441 Results 24 hrs Laboratory Tests Test 12/28/16 08:42 12/28/16 12:30 12/28/16 17:47 12/28/16 20:42 Bedside Glucose 183 185 157 209 Test 12/29/16 02:41 Bedside Glucose 170 Medications Medications Current Medications Potassium Chloride/Sodium Chloride (1/2 NS + KCl 20 Meq) 1,000 ml @ 100 mls/hr Q10H IV Last administered on 12/25/16 15:05; Admin Dose 100 MLS/HR; Start at 16:26 Acetaminophen/ Hydrocodone Bitart ([place] (10/325)) 1 tab Q4H PRN PO PAIN LEVEL 1-5 Last administered on 12/27/16 06:01; Admin Dose 1 TAB; Start 12/23/16 at 16: 30 Acetaminophen/ Hydrocodone Bitart ([place] (10/325)) 2 tab Q4H PRN PO PAIN LEVEL 6-10 Last administered on 12/29/16 02:42; Admin Dose 2 TAB; Start 12/23/16 at 16 :30 Hydromorphone HCl (Dilaudid) 0.2 mg Q1H PRN IV BREAKTHROUGH PAIN; Start at 16:30 Ondansetron HCl (Zofran Inj) 4 mg Q6H PRN IV NAUSEA AND/OR VOMITING; Start 12/23 at 16:30 Bisacodyl (Dulcolax Supp) 10 mg DAILY PRN [place] CONSTIPATION Last administered on 12/28/16 09:56; Admin Dose 10 MG; Start 12/23/16 at 16:30 Docusate Sodium (Colace) 100 mg BID PO Last administered on 12/28/16 20:51; Admin Dose 100 MG; Start 12/23/16 at 21:00 Al Hydrox/Mg Hydrox/Simethicone (Mag-Al Plus) 15 ml Q6H PRN PO CONSTIPATION/ DYSPEPSIA Last administered on 12/27/16 09:32; Admin Dose 15 ML; Start 12/23/16 at 16:30 Acetaminophen (Tylenol Tab) 650 mg Q4H PRN PO COLLAZO OR TEMP GREATER THAN 101.3F; Start 12/23/16 at 16:30 Cyclobenzaprine HCl (Flexeril) 10 mg TID PRN PO MUSCLE SPASMS; Start 12/23/16 at 16:30 Phenol (Cepastat Lozenge) 1 lozenge PRN PRN [place] SORE THROAT; Start 12/23/16 at 16 :30 Diphenhydramine HCl (Benadryl) 25 mg Q6H PRN IV ITCHING; Start 12/23/16 at 16:30 Naloxone HCl (Narcan) 0.2 mg Q2M PRN IV RR 8 BREATHS/MIN OR LESS; Start at 16:30 Hydromorphone HCl (Dilaudid [employer] FO[employer]OOK) [employer] FO[employer]OOK to be started in PACU Q4PCA IV Last administered on 12/23/16 17:05; Admin Dose 6 MG; Start 12/23/16 at 16:30 Miscellaneous Information 1. Hold [employer] FOOD[employer]OOK at 1,000... [employer] FO[employer] COOK IV ; Start 12/23/16 at 16: 30 Ascorbic Acid (Vitamin C) 500 mg DAILY PO Last administered on 12/28/16 08:44 ; Admin Dose 500 MG; Start 12/24/16 at 09:00 Atorvastatin Calcium (Lipitor) 20 mg QHS PO Last administered on 12/28/16 20: 51; Admin Dose 20 MG; Start 12/23/16 at 21:00 Metoprolol Succinate (Toprol Xl) 100 mg DAILY PO Last administered on 08:45; Admin Dose 100 MG; Start 12/23/16 at 19:00 Ranitidine HCl (Zantac) 150 mg HS PO Last administered on 12/28/16 20:51; Admin Dose 150 MG; Start 12/23/16 at 21:00 Valsartan (Diovan) 320 mg DAILY PO Last administered on 12/28/16 08:45; Admin Dose 320 MG; Start 12/24/16 at 09:00 Diagnostic Test (Pha) (Accu-Chek) 1 ea 02 XX Last administered on 12/29/16 02: 42; Admin Dose 1 EA; Start 12/24/16 at 02:00 Miscellaneous Information 1 ea NOTE XX ; Start 12/23/16 at 19:00 Glucose (Glutose) 15 gm Q15M PRN PO DECREASED GLUCOSE; Start 12/23/16 at 19:00 Glucose (Glutose) 22.5 gm Q15M PRN PO DECREASED GLUCOSE; Start 12/23/16 at 19:00 Dextrose (D50w Syringe) 25 ml Q15M PRN IV DECREASED GLUCOSE; Start 12/23/16 at 19:00 Dextrose (D50w Syringe) 50 ml Q15M PRN IV DECREASED GLUCOSE; Start 12/23/16 at 19:00 Glucagon (Glucagen) 1 mg Q15M PRN IM DECREASED GLUCOSE; Start 12/23/16 at 19:00 Glucose (Glutose) 15 gm Q15M PRN BUCCAL DECREASED GLUCOSE; Start 12/23/16 at 19: 00 Pantoprazole (Protonix Tab) 40 mg DAILY@06 PO Last administered on 12/28/16 05 :19; Admin Dose 40 MG; Start 12/25/16 at 06:00 Magnesium Oxide (Mag-Ox 400) 400 mg BID PO Last administered on 12/28/16 20:52 ; Admin Dose 400 MG; Start 12/25/16 at 09:00 Tamsulosin HCl (Flomax) 0.4 mg BID PO Last administered on 12/28/16 21:00; Admin Dose 0.4 MG; Start 12/26/16 at 14:00 Bethanechol Chloride (Urecholine) 25 mg TID PO Last administered on 12/28/16t 20:51; Admin Dose 25 MG; Start 12/27/16 at 21:00 JANIE GROSSMAN MD Dec 29, 2016 08:29
[2016-12-29] MEDS: MAGNESIUM OXIDE 400 MG TAB PO SCH (09:06)
[2016-12-29] MEDS: ASCORBIC ACID 500 MG TAB PO SCH (09:06)
[2016-12-29] MEDS: DOCUSATE SODIUM 100 MG CAP PO SCH (09:06)
[2016-12-29] MEDS: TAMSULOSIN (SR) 0.4 MG CAP PO SCH (09:06)
[2016-12-29] MEDS: metFORMIN 500 MG TAB PO SCH (09:07)
[2016-12-29] MEDS: METOPROLOL (XL) 100 MG TAB PO SCH (09:08)
[2016-12-29] MEDS: VALSARTAN 160 MG TAB PO SCH (09:08)
[2016-12-29] MEDS: INSULIN ASPART [NOVOLOG] 3 ML PEN SC SCH ×2 (09:10→11:40)
== END 2016-12-29 12:10 | disposition home or self-care (01) | DRG 460 ==
LOC: REC 08:33 → ICU 17:38 → MS1 12-24 17:32
PROVIDERS: ADMIT Specialist; ATTEND Specialist
PROC: 0ST40ZZ Resection of Lumbosacral Disc, Open Approach (ICD-10-PCS; 2016-12-23)
PROC: 07DR3ZZ Extraction of Iliac Bone Marrow, Percutaneous Approach (ICD-10-PCS; 2016-12-23)
PROC: 0SG3071 Fusion of Lumbosacral Joint with Autologous Tissue Substitute, Posterior Approach, Posterior Column, Open Approach (ICD-10-PCS; principal; 2016-12-23 12:00)
DX: M43.17 Spondylolisthesis, lumbosacral region (principal); I11.0 Hypertensive heart disease with heart failure; I50.32 Chronic diastolic (congestive) heart failure; I48.92 Unspecified atrial flutter; E11.9 Type 2 diabetes mellitus without complications; E78.5 Hyperlipidemia, unspecified; K21.9 Gastro-esophageal reflux disease without esophagitis; E83.42 Hypomagnesemia; Z95.1 Presence of aortocoronary bypass graft; R39.198 Other difficulties with micturition; N40.1 Benign prostatic hyperplasia with lower urinary tract symptoms; N39.498 Other specified urinary incontinence; R35.1 Nocturia; R39.14 Feeling of incomplete bladder emptying
CPT/HCPCS: 72110; 76856; 80048; 82962; 83735; 84153; 84154; 84484; 85025; 86850; 86900; 86901; 86920; 86999; 87081; 87086; 88304; 93005; 97116; 97162; 97530; A4310; C1713; C9113; J0131; J0690; J1100; J1170; J1644; J1815; J2250; J2370; J2405; J2710; J2765; J3010; J3475; J3480; J7999

== ENCOUNTER 2016-12-31 17:13 | Emergency (ER) | payer MEDICARE ==
[~2016-12-31] VITALS: Ht 170.2 cm; Wt 74.0 kg
[~2016-12-31 17:13] MED LIST changes: -AMLO5TAB4 PO; +ASCO500C7 PO; -ASPI-664 PO; +ASPI81TA3 PO; +CYAN100 PO; -DOCU100T PO; +GARL600T PO; -GLUC-137 PO; -LOSARTAN; -METO-429 PO; +METO100T13 PO; -MULT1TAB59 PO; +OMEG1CAP22 PO; +OSCAL PO; +RANI150T5 PO; -SEVOFLURANE 15 MIN ONE; -TRAV4OP25 BOTH EYES; +VALS320T11 PO
[2016-12-31 17:27] VITALS: Ht 170.2 cm; Wt 74.0 kg
[2016-12-31] MEDS ORDERED: SODIUM CHLORIDE 0.9% 1L BAG IV* STA (18:56)
[2016-12-31] MEDS ORDERED: CEFEPIME 2GM/50 ML (PMX) 50 ML IVPB STA (18:56)
[2016-12-31 19:26] VITALS: TEMP 98.9
[2016-12-31 19:47] LABS: BASOPHILS % 0.4 % (0.0-2.0); EOSINOPHILS % 0.2 % (0.0-7.0); HEMATOCRIT 26.4 % (42.0-52.0); HEMOGLOBIN 9.1 g/dl (14.0-18.0); LYMPHOCYTES # 0.7 10^3/ul (0.8-2.9); LYMPHOCYTES % 7.4 % (15.0-51.0); MEAN CORPUSCULAR HEMOGLOBIN 32.7 pg (29.0-33.0); MEAN CORPUSCULAR HGB CONC 34.5 g/dl (32.0-37.0); MEAN PLATELET VOLUME 9.4 fl (7.4-10.4); MONOCYTE # 1.1 10^3/ul (0.3-0.9); NEUTROPHILS % 80.4 % (39.0-77.0); PLATELET COUNT 276 10^3/UL (140-415); RED BLOOD COUNT 2.78 10^6/ul (4.70-6.10); RED CELL DISTRIBUTION WIDTH 12.9 % (11.5-14.5); WHITE BLOOD COUNT 10.1 10^3/ul (4.8-10.8)
[2016-12-31 20:02] LABS: INR 1.05; PROTIME 13.7 Sec (12.2-14.2); PT RATIO 1.1
[2016-12-31 20:03] LABS: PARTIAL THROMBOPLASTIN TIME 31.5 Sec (25.0-35.0)
[2016-12-31 20:07] LABS: ALANINE AMINOTRANSFERASE 44 IU/L (13-69); ALBUMIN 3.5 g/dl (3.3-4.9); ALKALINE PHOSPHATASE 92 IU/L (42-121); ANION GAP 14 (8-16); ASPARTATE AMINO TRANSFERASE 31 IU/L (15-46); BILIRUBIN,INDIRECT 0.3 mg/dl (0-1.1); BILIRUBIN,TOTAL 0.3 mg/dl (0.2-1.3); BLOOD UREA NITROGEN 15 mg/dl (7-20); CALCIUM 8.9 mg/dl (8.4-10.2); CARBON DIOXIDE 27 mmol/L (21-31); CHLORIDE 89 mmol/L (97-110); CREATININE 0.89 mg/dl (0.61-1.24); GLUCOSE 218 mg/dl (70-220); SODIUM 126 mmol/L (135-144); TOTAL PROTEIN 6.4 g/dl (6.1-8.1)
--- NOTE | 2016-12-31 20:20 | RADRPT ---
PROCEDURE: XR Chest 1 View. CLINICAL INDICATION: Shortness of breath. TECHNIQUE: AP view of the chest was obtained. COMPARISON: August 01, 2012 FINDINGS: The heart size is within normal limits. Calcified atherosclerosis is noted in the aorta. Median gary rnotomy wires overlie the heart. The lungs are hypoinflated. Atelectasis is noted in the bilateral lower lobes. No consolidations are identified. No pneumothorax is seen. Osseous structures are in tact. IMPRESSION: Calcified atherosclerosis in the aorta. Hypoinflated lungs with atelectasis in the bilateral lower lobes. RPTAT: AA .Óscar Bell MD, MD Date Time Electronically viewed and signed by .Óscar Bell MD, MD on 12/31/2016 20:20 .P/
[2016-12-31 20:28] LABS: TROPONIN-I < 0.012 ng/ml (0.00-0.12)
[2016-12-31 20:43] LABS: ADD UMIC YES; UR ASCORBIC ACID 20 mg/dL (NEGATIVE); UR BACTERIA FEW /HPF (NONE SEEN); UR BILIRUBIN (Dip) NEGATIVE (NEGATIVE); UR BLOOD (Dip) NEGATIVE (NEGATIVE); UR CLARITY SLIGHTLY CLOUDY (CLEAR); UR COLOR YELLOW (YELLOW); UR GLUCOSE (Dip) NEGATIVE (NEGATIVE); UR KETONES (Dip) NEGATIVE (NEGATIVE); UR LEUKOCYTE ESTERASE (Dip) 3+ Leu/ul (NEGATIVE); UR NITRITE (Dip) NEGATIVE (NEGATIVE); UR RBC 2 /HPF (0-5); UR SPECIFIC GRAVITY (Dip) 1.009 (1.003-1.030); UR SQUAMOUS EPITHELIAL CELL FEW /HPF (FEW); UR TOTAL PROTEIN (Dip) 1+ mg/dl (NEGATIVE); UR UROBILINOGEN (Dip) NEGATIVE (NEGATIVE)
[2016-12-31 23:01] VITALS: BP 137/51; PULSE 63; RESP 20
--- NOTE | 2016-12-31 23:05 | ERD ---
ER Documentation Chief Complaint Date/Time DATE: 12/31/16 TIME: 23:00 Chief Complaint pt bib family with c/o fever and dysuria, s/p back surg HPI 31-year-old male came in for fever and pain on urination. Is coming by his daughter. Denies chest pain shortness of breath or cough. Denies nausea and vomiting. ROS All systems reviewed and are negative except as per history of present illness. Medications Home Meds Reported Medications Garlic Extract* (Garlic*) 600 Mg Tablet, 600 MG PO DAILY, TAB 12/23/16 [place]-3 Fatty Acids/Fish Oil (Fish Oil Conc 1,000 mg Softgel) 1 Each Capsule, 1 EACH PO DAILY, CAP 12/23/16 Calcium/Vitamin D (Oyster Shell W/Vit D) 1 Tab Tab, 1 TAB PO DAILY, TAB 12/23/16 Ascorbic Acid* (Vitamin C*) 500 Mg Capsule.sa, 500 MG PO DAILY, CAP 12/23/16 Cyanocobalamin* (Vitamin B12*) 100 Mcg Tab, 100 MCG PO DAILY, TAB 12/23/16 Aspirin* (Aspirin* Chew) 81 Mg Tab.chew, 81 MG PO DAILY, TAB.CHEW 12/23/16 Metoprolol Succinate* (Toprol XL*) 100 Mg Tab.sr.24h, 100 MG PO DAILY, #30 TAB 12/23/16 Ranitidine Hcl* (Ranitidine Hcl*) 150 Mg Tablet, 150 MG PO HS, #30 TAB 12/23/16 Glimepiride* (Glimepiride*) 1 Mg Tablet, 0.5 MG PO DAILY, TAB 12/23/16 Valsartan* (Diovan*) 320 Mg Tablet, 320 MG PO DAILY, TAB 12/23/16 Atorvastatin Calcium* (Atorvastatin Calcium*) 20 Mg Tablet, 20 MG PO QHS, TAB 07/28/14 Omeprazole* (Omeprazole*) 20 Mg Capsule.dr, 20 MG PO AC BREAKFAST, CAP 07/28/14 Tamsulosin Hcl* (Tamsulosin Hcl*) 0.4 Mg Cap.er.24h, 0.4 MG PO QHS 12/31/12 Metformin* (Glucophage*) 500 Mg Tab, 1000 MG PO BID, 0 Refills 12/27/11 Allergies Allergies: Coded Allergies: No Known Drug Allergies (Verified Allergy, Unknown, 12/31/16) PMhx/Soc History of Surgery: Yes (lumbar) Anesthesia Reaction: No Hx Neurological Disorder: No Hx Respiratory Disorders: No Hx Cardiac Disorders: Yes (HEART DISEASE ) Hx Psychiatric Problems: No Hx Miscellaneous Medical Probl: Yes (CAD, DM2, HTN, CHF, atrial flutter, hyperlipidemia) Hx Alcohol Use: No Hx Substance Use: No Hx Tobacco Use: Yes Smoking Status: Current every day smoker Physical Exam Vitals Vital Signs Date Time Temp Pulse Resp B/P Pulse Ox O2 Delivery O2 Flow Rate FiO2 12/31/16 19:26 98.9 68 18 132/85 98 Room Air 12/31/16 17:27 102.9 105 20 127/84 98 Physical Exam Const: [] No distress Head: Atraumatic Eyes: Normal Conjunctiva ENT: Normal External Ears, Nose and Mouth. Neck: Full range of motion..~ No meningismus. Resp: Clear to auscultation bilaterally Cardio: Regular tachycardia, no murmurs Abd: Soft, mild suprapubic tenderness without guarding rebound r, non distended. Normal bowel sounds Skin: No petechiae or rashes Back: No midline or flank tenderness Ext: No cyanosis, or edema Neur: Awake and alert and oriented 3, no focal deficit, cranial nerves II through XII intact, no cerebellar deficits, normal gait. Psych: Normal Mood and Affect Result Diagram: 12/31/16191912/31/161919 Results 24 hrs Laboratory Tests Test 12/31/16 19:20 12/31/16 19:45 12/31/16 20:25 12/31/16 21:30 White Blood Count 10.110^3/ul Red Blood Count 2.7810^6/ul Hemoglobin 9.1g/dl Hematocrit 26.4% Mean Corpuscular Volume 95.0fl Mean Corpuscular Hemoglobin 32.7pg Mean Corpuscular Hemoglobin Concent 34.5g/dl Red Cell Distribution Width 12.9% Platelet Count 35438^3/UL Mean Platelet Volume 9.4fl Neutrophils % 80.4% Lymphocytes % 7.4% Monocytes % 11.0% Eosinophils % 0.2% Basophils % 0.4% Nucleated Red Blood Cells % 0.0/100WBC Neutrophils # (Manual) 8.110^3/ul Lymphocytes # 0.710^3/ul Monocytes # 1.110^3/ul Eosinophils # 0.010^3/ul Basophils # 0.010^3/ul Nucleated Red Blood Cells # 0.010^3/ul Prothrombin Time 13.7Sec Prothrombin Time Ratio 1.1 INR International Normalized Ratio 1.05 Activated Partial Thromboplast Time 31.5Sec Sodium Level 126mmol/L Potassium Level 4.0mmol/L Chloride Level 89mmol/L Carbon Dioxide Level 27mmol/L Anion Gap 14 Blood Urea Nitrogen 15mg/dl Creatinine 0.89mg/dl Glucose Level 218mg/dl Calcium Level 8.9mg/dl Total Bilirubin 0.3mg/dl Direct Bilirubin 0.00mg/dl Indirect Bilirubin 0.3mg/dl Aspartate Amino Transf (AST/SGOT) 31IU/L Alanine Aminotransferase (ALT/SGPT) 44IU/L Alkaline Phosphatase 92IU/L Troponin I < 0.012ng/ml Total Protein 6.4g/dl Albumin 3.5g/dl Globulin 2.90g/dl Albumin/Globulin Ratio 1.20 Lactic Acid Level 1.5mmol/L 1.0mmol/L Urine Color YELLOW Urine Clarity SLIGHTLY CLOUDY Urine pH 8.0 Urine Specific [place] 1.009 Urine Ketones NEGATIVEmg/dL Urine Nitrite NEGATIVEmg/dL Urine Bilirubin NEGATIVEmg/dL Urine Urobilinogen NEGATIVEmg/dL Urine Leukocyte Esterase 3+Uday/ul Urine Microscopic RBC 2/HPF Urine Microscopic WBC 66/HPF Urine Squamous Epithelial Cells FEW/HPF Urine Bacteria FEW/HPF Urine Hemoglobin NEGATIVEmg/dL Urine Glucose NEGATIVEmg/dL Urine Total Protein 1+mg/dl Current Medications Medications (Trade) Dose Ordered Sig/Sabas Route PRN Reason Start Time Stop Time Status Last Admin Dose Admin Sodium Chloride 2290 ml 2,290 ml BOLUS OVER 2 HOURS STAT IV* 12/31/16 18:56 12/31/16 18:58 DC 12/31/16 18:56 Cefepime HCl (Maxipime 2gm/50 ml (Pmx)) 50 ml @ 100 mls/hr ONCE STAT IVPB 12/31/16 18:56 12/31/16 19:25 DC 12/31/16 21:07 Procedures/MDM UTI with fever initial tachycardia. Vital signs completely stabilized after fluid administration. Hyponatremia with no neurological symptoms. Initially septic work is performed patient was given 30 cc/kg of normal saline. He was given 1 g of Rocephin no signs of cardiac ischemia. After fluid alone patient was feeling much better. He do not want to stay in the hospital but it is reasonable he is currently stable vital signs feels well and seems very high functioning for his age. I am going to discharge him with Cipro and Macrobid as well as naproxen and Zofran. Primary care follow-up in 2-3 days and return precautions EKG interpretation: Normal sinus rhythm rate of 67, normal axis, first-degree AV block, right bundle branch block, no ST or T-wave changes concerning for acute ischemia. assembly line worker interpretation: Normal sinus rhythm without arrhythmia Chest x-ray interpretation: No acute process, I see no infiltrate, no pulmonary edema, pneumothorax, no fractures Departure Diagnosis: Primary Impression: UTI (urinary tract infection) Additional Impressions: Fever Hyponatremia Condition: Stable SHARON SOLER DO Dec 31, 2016 23:05
[2016-12-31] MEDS ORDERED: PHEN-537 PO (23:07)
[2016-12-31] MEDS ORDERED: TYL500 PO (23:07)
[2016-12-31] MEDS ORDERED: NITR-58 PO (23:07)
[2016-12-31] MEDS ORDERED: CIPR500T4 PO (23:07)
[2016-12-31] MEDS ORDERED: ONDA4TAB14 PO (23:07)
== END 2016-12-31 23:42 | disposition home or self-care (01) ==
LOC: E/R 17:13
DX: N39.0 Urinary tract infection, site not specified (principal); E87.1 Hypo-osmolality and hyponatremia; F17.210 Nicotine dependence, cigarettes, uncomplicated; E11.9 Type 2 diabetes mellitus without complications; I10 Essential (primary) hypertension; I50.9 Heart failure, unspecified; I25.10 Atherosclerotic heart disease of native coronary artery without angina pectoris; Z79.82 Long term (current) use of aspirin; Z79.84 Long term (current) use of oral hypoglycemic drugs
CPT/HCPCS: 36415; 71010; 80053; 81001; 83605; 84484; 85025; 85610; 85730; 87040; 87086; 93005; 96374; 99285; J0692; J7030; P9612

== ENCOUNTER 2017-02-02 09:05 | Emergency (ER) | payer MEDICARE ==
[~2017-02-02] VITALS: Ht 162.6 cm; Wt 67.0 kg
[~2017-02-02 09:05] MED LIST changes: +CIPR500T4 PO; +METO-336 PO; -METO100T13 PO; +NITR-58 PO; +ONDA4TAB14 PO; +PHEN-537 PO; +TYL500 PO
[2017-02-02 09:07] VITALS: Ht 162.6 cm; Wt 67.0 kg
[2017-02-02] MEDS ORDERED: KETOROLAC 30 MG INJ IM STA (09:27)
--- NOTE | 2017-02-02 09:48 | ERD ---
ER Documentation Chief Complaint Date/Time DATE: 02/02/17 TIME: 09:42 Chief Complaint pop & back pain s/p try to catch daughter who fainted, back surgery 01/02 HPI This is a 71-year-old male who presents the emergency department today with his daughter for complaints of back pain. Patient daughter reports that patient had surgery on December 23, 2016 and had a disc replacement. She is unsure of the surgeon's name. States that on Friday night his was about to faint after some trauma in the family and he tried to catch her and felt some cracking in his back. He has had increased pain since that time. States that he had not really taken much medication in the past for his pain but was given a prescription for Sedalia and he took 1 of those this morning. Denies any fevers or chills, loss of bowel or bladder control, leg pain or weakness ROS All systems reviewed and are negative except as per history of present illness. Medications Home Meds Active Scripts Phenazopyridine Hcl* (Pyridium*) 100 Mg Tab, 100 MG PO TID for PAIN, #8 TAB Prov:SHARON SOLER DO 12/31/16 Acetaminophen* (Tylenol*) 500 Mg Tab, 500 MG PO Q6H Y for MILD PAIN LEVEL 1-3, # 20 TAB Prov:SHARON SOLER 12/31/16 Ondansetron (Ondansetron Odt) 4 Mg Tab.rapdis, 4 MG PO Q6H Y for NAUSEA AND/OR VOMITING, #10 TAB Prov:SHARON SOLER 12/31/16 Nitrofurantoin Monohyd Macrocr* (Macrobid*) 100 Mg Capsr, 100 MG PO BID, #14 CAP Prov:SHARON SOLER 12/31/16 Ciprofloxacin Hcl* (Ciprofloxacin Hcl*) 500 Mg Tablet, 500 MG PO BID for 7 Days , TAB Prov:KARLENESHARON 12/31/16 Reported Medications Garlic Extract* (Garlic*) 600 Mg Tablet, 600 MG PO DAILY, TAB 12/23/16 [place]-3 Fatty Acids/Fish Oil (Fish Oil Conc 1,000 mg Softgel) 1 Each Capsule, 1 EACH PO DAILY, CAP 12/23/16 Calcium/Vitamin D (Oyster Shell W/Vit D) 1 Tab Tab, 1 TAB PO DAILY, TAB 12/23/16 Ascorbic Acid* (Vitamin C*) 500 Mg Capsule.sa, 500 MG PO DAILY, CAP 12/23/16 Cyanocobalamin* (Vitamin B12*) 100 Mcg Tab, 100 MCG PO DAILY, TAB 12/23/16 Aspirin* (Aspirin* Chew) 81 Mg Tab.chew, 81 MG PO DAILY, TAB.CHEW 12/23/16 Metoprolol Succinate* (Toprol XL*) 100 Mg Tab.sr.24h, 100 MG PO DAILY, #30 TAB 12/23/16 Ranitidine Hcl* (Ranitidine Hcl*) 150 Mg Tablet, 150 MG PO HS, #30 TAB 12/23/16 Glimepiride* (Glimepiride*) 1 Mg Tablet, 0.5 MG PO DAILY, TAB 12/23/16 Valsartan* (Diovan*) 320 Mg Tablet, 320 MG PO DAILY, TAB 12/23/16 Atorvastatin Calcium* (Atorvastatin Calcium*) 20 Mg Tablet, 20 MG PO QHS, TAB 07/28/14 Omeprazole* (Omeprazole*) 20 Mg Capsule.dr, 20 MG PO AC BREAKFAST, CAP 07/28/14 Tamsulosin Hcl* (Tamsulosin Hcl*) 0.4 Mg Cap.er.24h, 0.4 MG PO QHS 12/31/12 Metformin* (Glucophage*) 500 Mg Tab, 1000 MG PO BID, 0 Refills 12/27/11 Allergies Allergies: Coded Allergies: No Known Drug Allergies (Verified Allergy, Unknown, 12/31/16) PMhx/Soc History of Surgery: No Anesthesia Reaction: No Hx Neurological Disorder: No Hx Respiratory Disorders: No Hx Cardiac Disorders: No Hx Psychiatric Problems: No Hx Miscellaneous Medical Probl: No Hx Alcohol Use: No Hx Substance Use: No Hx Tobacco Use: No Smoking Status: Never smoker Physical Exam Vitals Vital Signs Date Time Temp Pulse Resp B/P Pulse Ox O2 Delivery O2 Flow Rate FiO2 02/02/17 09:07 97.1 71 18 206/79 99 Physical Exam Const: NAD Head: Atraumatic Eyes: Normal Conjunctiva ENT: Normal External Ears, Nose and Mouth. Neck: Full range of motion..~ No meningismus. Resp: Clear to auscultation bilaterally Cardio: Regular rate and rhythm, no murmurs Abd: Soft, non tender, non distended. Normal bowel sounds Skin: Evidence of surgical scar midline lumbar spine. Well-healed. No erythema or warmth. Back: Lumbar spine midline and bilateral paraspinal tenderness. Unable to assess range of motion secondary to pain. Pulses 2+. Distal neurovascular intact. Ext: No cyanosis, or edema Neur: Awake and alert Psych: Normal Mood and Affect Results 24 hrs Current Medications Medications (Trade) Dose Ordered Sig/Sabas Route PRN Reason Start Time Stop Time Status Last Admin Dose Admin Ketorolac Tromethamine (Toradol) 30 mg ONCE STAT IM 02/02/17 09:27 02/02/17 09:30 DC 02/02/17 09:36 DIAGNOSTIC IMAGING REPORT Patient: ADWOA CADET : 1945 Age: 71 Sex: M MR #: [id number] DOS: 02/02/17 0000 Ordering MD: MEAGAN MATA PA-C Location: [facility] Room/Bed: PROCEDURE: XR Lumbar Spine. CLINICAL INDICATION: Lower back Pain following acute traumatic injury. TECHNIQUE: AP and lateral views of the lumbar spine were obtained. COMPARISON: December 23, 2016 FINDINGS: There is normal vertebral mineralization and alignment. No fracture or subluxation is seen. The disc spaces are normal in appearance. The patient is status post L5/S1 posterior fusion with discectomy. Hardware appears intact. The soft tissues appear normal. There is no interval change. IMPRESSION: No acute fracture or dislocation. Status post L5-S1 posterior fusion. Hardware is intact. No interval change. RPTAT: QQ .Radha Daniels MD, MD Date Time Electronically viewed and signed by .Radha Daniels MD, MD on 02/02/2017 11:10 .F/ CC: MEAGAN MATA PA-C Procedures/MDM This is a 71-year-old male presents to the emergency department today with his daughter complaining of back pain since last night after patient tried to catch his who was fainting. Patient does have a history of disc replacement on December 23, 2016. Patient and daughter unsure of the surgeon's name. Patient is afebrile and otherwise well-appearing however given that he has had surgery in the past and acute pain after an injury I did obtain imaging. Per the radiology report images of the lumbar spine No acute fracture dislocation. He is status post L5-S1 posterior fusion with discectomy. Hardware appears intact. Soft tissues are normal. There is no interval change. Patient symptoms at this time is consistent with acute exacerbation of patient' s previous back surgery. He is afebrile and otherwise well-appearing. He has no loss of bowel or bladder control. He has no leg pain. Patient did indicate that prior to the surgery he did have leg pain but none currently. Do not feel that he requires further imaging. Patient took a Sedalia 02/18/2025 this morning. Daughter showed me the bottle and the Bottle was completely full and I do not feel the patient is overusing the narcotics and she indicated that he has hardly taken any medication after his surgery. Patient was given Toradol here in the emergency department Pain improved. Patient was sitting comfortably.. He may continue to take his Sedalia that he was prescribed. I have explained to the patient and daughter that he does need to call the surgeon first thing in the morning. Patient also indicated he is scheduled for physical therapy tomorrow afternoon I have explained to them that they need to call the surgeon in the morning to determine whether he should keep his appointment tomorrow for physical therapy. Patient and daughter understood. At this time the patient is stable for discharge and outpatient management. Patient should follow up with their PCP in the next 1-2 days. They may return to the emergency department sooner for any persistent or worsening of symptoms. Patient understood and agreed with the plan. Departure Diagnosis: Primary Impression: Injury of back Encounter type: initial encounter Qualified Code: S39.92XA - Injury of back , initial encounter Condition: Fair MEAGAN MATA PA-C Feb 02, 2017 09:48
--- NOTE | 2017-02-02 11:11 | RADRPT ---
PROCEDURE: XR Lumbar Spine. CLINICAL INDICATION: Lower back Pain following acute traumatic injury. TECHNIQUE: AP and lateral views of the lumbar spine were obtained. COMPARISON: December 23, 2016 FINDINGS: There is normal vertebral mineralization and alignment. No fracture or subluxation is seen. The disc spaces are normal in appearance. The patient is status post L5/S1 posterior fusion with discectomy. Hardware appears intact. The soft tissues appear normal. There is no interval change. IMPRESSION: No acute fracture or dislocation. Status post L5-S1 posterior fusion. Hardware is intact. No interva l change. RPTAT: QQ .Radha Daniels MD, Date Time Electronically viewed and signed by .Radha Daniels MD, on 02/02/2017 11:10 .F/
== END 2017-02-02 11:36 | disposition home or self-care (01) ==
LOC: FTE 09:05
DX: S39.92XA Unspecified injury of lower back, initial encounter (principal); X50.9XXA Other and unspecified overexertion or strenuous movements or postures, initial encounter; Y92.9 Unspecified place or not applicable; Z79.82 Long term (current) use of aspirin; Z79.84 Long term (current) use of oral hypoglycemic drugs
CPT/HCPCS: 72100; 96372; 99284; J1885

== ENCOUNTER 2017-09-23 08:42 | Day surgery (SDC) | END 2017-09-23 14:34 | disposition home or self-care (01) ==